=== PATIENT | male | born 1950 | race Caucasian/White ===

== ENCOUNTER 2022-05-08 11:41 | Emergency (ER) | payer OTHER ==
--- OUTSIDE RECORDS SUMMARY | 2022-05-08 11:43 | XMS REPORT | Continuity of Care Document ---
:1950 Author Organization [facility] t Address [address] [place] [address] Care Team Providers Name Role Phone Jessica Shadi Quinn Primary Care Physician KATHLEEN FUNK Attending Clinician Unavailable ALBERTO MCNEIL Attending Clinician Unavailable JAYESH ROBIN Attending Clinician Unavailable Nurse, Adc Pob Immunization Attending Clinician Unavailable Jayesh Robin DO Attending Clinician PATRICIA BELL Attending Clinician Unavailable KATHLEEN FUNK Admitting Clinician Unavailable Payers Payer Name Policy Type Policy Number Effective Date Expiration Date S nargis [facility] [id number] 2013 PPO 00:00:00 [facility] 3 [id number] 2020 00:00:00 Problems Condition Condition Condition Status Onset Resolution Last Treating Co mments Source Name Details Category Date Date Treatment Clinician Date No known No known Disease Unive rs active active ity of problems problems [facility] Allergies, Adverse Reactions, Alerts Allergy Allergy Status Severity Reaction(s) Onset Inactive Treating Comm ents Source Name Type Date Date Clinician NO KNOWN Drug Active Univers ALLERGIE Class ity of S [facility] Social History Social Habit Start Date Stop Date Quantity Comments Source History of Cigarette Smoker Universi ty of tobacco use [facility] Sex Ass[birth year] Universit y of 00:00:00 00:00:00 [facility] Smoking Status Start Date Stop Date Source Current every day smoker 2017-07-25 00:00:00 Uni versity of [facility] Medications Ordered Filled Start Stop Current Ordering Indication Dosage Frequency Signature Comments Components Source Medication Medication Date Date Medication? Clinician (SIG) Name Name METFORMIN Yes Take by Unive rs HCL 1-03 mouth. ity of (METFORMIN 14:03: [place] ORAL) [address] [place] [address] LISINOPRIL Yes Take by Univ ers ORAL 1-03 mouth. ity of 14:03: [place] [facility] ATORVASTATI Yes Take by Uni vers N CALCIUM 1-03 mouth. ity of (ATORVASTAT 14:03: [place] IN ORAL) [address] [place] [address] aspirin 81 Yes 81mg Take 81 mg U nivers mg EC 03 by mouth ity of tablet 14:03: daily. [address] INSULIN Yes inject Univers DETEMIR 1-03 under the ity of (LEVEMIR 14:03: skin. [place]) [address] [place] [address] gabapentin 2016-07 Yes TAKE 2 Unive rs 300 mg 2-22 CAPSULES 3 ity of capsule 00:00: TIMES A [facility] Immunizations Ordered Filled Immunization Date Status Comments Sourc e Immunization Name Name SARS-COV-2 COVID-19 2021-05-24 Completed Unive rsity of MODERNA BOOSTER 00:00:00 [facility] VACCINE Branch SARS-COV-2 COVID-19 2020-08-16 Completed Unive rsity of MODERNA VACCINE 00:00:00 [facility] SARS-COV-2 COVID-19 2020-07-19 Completed Unive rsity of MODERNA VACCINE 00:00:00 [facility] Procedures Procedure Date / Time Performed Performing Clinician Sourc e SARS-COV-2 COVID-19 2021-05-24 18:04:50 Doctor Unassigned, No Un [facility]ity of [place] VACCINE Name [facility] BOOSTER,0.25ML,IM (MODERNA) Encounters Start End Encounter Admission Attending Care Care Encounter Source Date/Time Date/Time Type Type Clinicians Facility Department ID 2021-05-22 Outpatient KEILY SALGUERO [id number] Isabella 14:22:41 KATLHEEN ity of [facility] 2021-08-16 2021-08-16 Outpatient ALBERTO MCNEIL [id number] [place] 00:00:00 00:00:00 Seybol d 2021-07-17 2021-07-17 Outpatient ALBERTO MCNEILCHARANJIT LOCO [id number] [place] 00:00:00 00:00:00 Seybol d 2021-05-24 2021-05-24 Outpatient Sandra CARLA [facility] [id number] Univers 13:20:00 13:20:00 JAYESH [facility] 2021-05-24 2021-05-24 Imm/Inj Nurse, Adc Pob Immunization [facility] [id number] Univers 13:03:03 13:13:03 Visit Jayesh Robin [id number] [facility] [id number] Bradley DAVISESSIO [phone] Co dical [address] 2020-08-16 2020-08-16 Outpatient Sandra BELL [facility] [id number] Univers 10:30:00 10:30:00 PATRICIA [id number] [facility] 2020-08-16 2020-08-16 Outpatient R ARABELLA [facility] [id number] Univers 10:30:00 10:30:00 PATRICIA [facility] 2020-07-19 2020-07-19 Outpatient Sandra BELL [facility] [id number] Univers 10:00:00 10:00:00 PATRICIA [id number] [facility] 2020-07-19 2020-07-19 Outpatient Sandra BELL [facility] [id number] Univers 10:00:00 10:00:00 PATRICIA [facility] Results This patient has no known results.
[2022-05-08] MEDS ORDERED: DIAZEPAM 5 MG TABLET ONE (13:00)
[2022-05-08] MEDS ORDERED: MORPHINE 4 MG/ML SYR ONE (13:00)
--- NOTE | 2022-05-08 13:02 | RAD REPORT ---
EXAM DESCRIPTION: CT - C Spine Wo Con - 05/08/2022 12:46 pm CLINICAL HISTORY: right arm pain Neck pain, radiculopathy. COMPARISON: No comparisons FINDINGS: Moderate lower cervical degenerative changes are present with posterior osteophyte and dis c thinning. This results in moderate spinal canal stenosis. No evidence of acute cervical spine fracture or subluxation. Prevertebral soft tissues are normal in thickness. Heavy atherosclerosis of both carotid bulbs. IMPRESSION: Negative for acute cervical spine abnormality. Moderately severe lower cervical degenerative spondylosis. All CT scans are performed using dose optimization technique as appropriate and may include automated exposure control or mA/KV adjustment according to patient size.
--- NOTE | 2022-05-08 14:47 | EDPHYS ---
Physician Documentation [facility] Name: Aaron Valenzuela Age: 71 yrs Sex: Male : 1950 Arrival Date: 05/08/2022 Time: 11:43 Bed DIS3 Private MD: ED Physician Uma Hawk HPI: 05/08 12:33 This 71 yrs old Male presents to ER via Ambulatory with complaints of Arm Pain, jmm Shoulder Pain, Numbness Of Hand. 12:33 The patient or guardian complains of pain, that is acute. Onset: The symptoms/episode jmm began/occurred gradually, 12 day(s) ago. Is a 71-year-old male with history diabetes mellitus, hypertension the presents emerged part with complaints of right shoulder and upper back pain which radiates into his right arm. Symptoms have been ongoing for approximately 12 days. Patient prescribed hydrocodone without any relief of pain. PCP still waiting on MRI of the shoulder for further evaluation of possible injection of the joint.. Historical: - Allergies: 12:35 No Known Allergies; vg1 - PMHx: 12:35 Diabetes - IDDM; Hypertension; vg1 - Immunization history:: Client reports receiving the 2nd dose of the Covid vaccine. - Social history:: Smoking status: Patient reports the use of cigarette tobacco products, smokes two packs cigarettes per day. ROS: 12:33 Constitutional: Negative for fever, chills, and weight loss, Cardiovascular: Negative jmm for chest pain, palpitations, and edema, Respiratory: Negative for shortness of breath, cough, wheezing, and pleuritic chest pain. 12:33 MS/extremity: Positive for pain. 12:33 All other systems are negative. Exam: 12:33 Constitutional: This is a well developed, well nourished patient who is awake, alert, jmm and in no acute distress. Head/Face: atraumatic. Eyes: EOMI, no conjunctival erythema appreciated ENT: Moist Mucus Membranes Neck: Trachea midline, Supple Chest/axilla: Normal chest wall appearance and motion. Cardiovascular: Regular rate and rhythm. No edema appreciated Respiratory: Normal respirations, no respiratory distress appreciated Abdomen/GI: Non distended Back: Normal ROM Skin: General appearance color normal 12:33 Musculoskeletal/extremity: Painful abduction, full state epidemiologist strength noted to the right arm. Full radial pulse. Right posterior shoulder tender to palpation. 12:33 Skin: Appearance: Color: normal in color. 12:33 Neuro: Orientation: is normal, Mentation: is normal, Memory: is normal. 12:33 Psych: Behavior/mood is pleasant, cooperative. Vital Signs: 12:30 BP 140 / 78; Pulse 70; Resp 18; Temp 98.3; Pulse Ox 97% ; Weight 90.72 kg; Height 6 ft. vg1 0 in. (182.88 cm); Pain 10/10; 12:30 Body Mass Index 27.12 (90.72 kg, 182.88 cm) vg1 MDM: 12:34 Patient medically screened. [facility] 14:45 Data reviewed: vital signs, nurses notes. Counseling: I had a detailed discussion with [facility] the patient and/or guardian regarding: the historical points, exam findings, and any diagnostic results supporting the discharge/admit diagnosis, radiology results, the need for outpatient follow up, to return to the emergency department if symptoms worsen or persist or if there are any questions or concerns that arise at home. 05/08 12:33 Order name: CT C Spine; Complete Time: 13:04 [facility] Administered Medications: 13:02 Drug: Valium (diazepam) 5 mg Route: PO; vg1 13:04 Drug: morphine 4 mg Route: IM; Site: left deltoid; vg1 Disposition Summary: 05/08/22 14:46 Discharge Ordered Location: Home [facility] Condition: Stable [facility] Diagnosis - Pain in right shoulder [facility] Followup: [facility] - With: Ross Us MD - When: 1 - 2 days - Reason: Recheck today's complaints, Continuance of care, Re-evaluation by your physician Discharge Instructions: - Discharge Summary Sheet [facility] - Shoulder Pain [facility] Forms: - Medication Reconciliation Form [facility] - Thank You Letter [facility] - Antibiotic Education [facility] - Prescription Opioid Use [facility] Prescriptions: - Zanaflex 4 mg Oral Tablet - take 1 tablet by ORAL route every 8 hours As needed; 20 tablet; Refills: 0, [facility] Product Selection Permitted - Diclofenac Sodium 75 mg Oral Tablet Sustained Release - take 1 tablet by ORAL route 2 times per day; 30 tablet; Refills: 0, Product [facility] Selection Permitted Addendum: 05/11/2022 03:28 STAFF ATTESTATION STATEMENT: I was immediately available onsite in the emergency s d2 department for consultation in the care of this patient. I did not see or examine this patient. Uma Hawk MD. Signatures: Dispatcher [employer] EDJonah Collins PA PA jmm Garcia, Victoria, RN RN vg1 Kenn, MD KATY Eaton sd2
--- NOTE | 2022-05-08 14:47 | ER ---
Nurse's Notes [facility] [place] Name: Aaron Valenzuela Age: 71 yrs Sex: Male : 1950 Arrival Date: 05/08/2022 Time: 11:43 Bed DIS3 Private MD: Diagnosis: Pain in right shoulder Presentation: 05/08 12:30 Chief complaint: Patient states: x 1 week Right shoulder pain that radiates down the vg1 Right arm and states numbness to Right hand; denies fall or injury. Coronavirus screen: Vaccine status: Patient reports receiving the 2nd dose of the covid vaccine. Client denies travel out of the [place] in the last 14 days. Ebola Screen: Patient negative for fever greater than or equal to 101.5 degrees Fahrenheit, and additional compatible Ebola Virus Disease symptoms Patient denies exposure to infectious person. Initial Sepsis Screen: Does the patient meet any 2 criteria? No. Patient's initial sepsis screen is negative. Does the patient have a suspected source of infection? No. Patient's initial sepsis screen is negative. Risk Assessment: Do you want to hurt yourself or someone else? Patient reports no desire to harm self or others. Onset of symptoms was May 01, 2022. 12:30 Method Of Arrival: Ambulatory vg1 12:30 Acuity: FRANCESCA 4 vg1 Triage Assessment: 12:35 General: Appears uncomfortable, Behavior is calm, cooperative. Pain: Complains of pain vg1 in Right shoulder Pain currently is 10 out of 10 on a pain scale. Pain began x 1 week. Musculoskeletal: Range of motion: limited in right shoulder Reports numbness in right hand. Historical: - Allergies: 12:35 No Known Allergies; vg1 - PMHx: 12:35 Diabetes - IDDM; Hypertension; vg1 - Immunization history:: Client reports receiving the 2nd dose of the Covid vaccine. - Social history:: Smoking status: Patient reports the use of cigarette tobacco products, smokes two packs cigarettes per day. Vital Signs: 12:30 BP 140 / 78; Pulse 70; Resp 18; Temp 98.3; Pulse Ox 97% ; Weight 90.72 kg; Height 6 ft. vg1 0 in. (182.88 cm); Pain 10/10; 12:30 Body Mass Index 27.12 (90.72 kg, 182.88 cm) vg1 ED Course: 11:43 Patient arrived in ED. rg4 12:29 Jonah Schneider PA is PHCP. moe 12:29 Uma Hawk MD is Attending Physician. jmm 12:35 Triage completed. vg1 12:35 Arm band placed on. vg1 12:47 CT C Spine In Process Unspecified. EDMS 13:58 Chelsey Brewer, RN is Primary Nurse. iw 14:46 Ross Us MD is Referral Physician. jmm Administered Medications: 13:02 Drug: Valium (diazepam) 5 mg Route: PO; vg1 13:04 Drug: morphine 4 mg Route: IM; Site: left deltoid; vg1 Outcome: 14:46 Discharge ordered by . tyrell 15:07 Patient left the ED. bd Signatures: Dispatcher [employer] EDMS Haylee Balderrama Jonah Schneider PA PA jmm Williams, Irene, RN Mariel Ramires rg4 Nayana Woo RN RN vg1
[2022-05-08 15:30] VITALS: BP 140/78; TEMP 98.3; O2SAT 97
== END 2022-05-08 15:07 | disposition home or self-care (01) ==
LOC: ER 11:41
DX: M25.511 Pain in right shoulder (principal); E11.9 Type 2 diabetes mellitus without complications; I10 Essential (primary) hypertension; F17.210 Nicotine dependence, cigarettes, uncomplicated
CPT/HCPCS: 72125; 96372; 99283

== ENCOUNTER 2022-12-06 15:54 | Observation (INO) | payer BC ==
--- OUTSIDE RECORDS SUMMARY | 2022-12-06 15:58 | XMS REPORT | Continuity of Care Document ---
:1950 Author Organization [facility] t Address [address] [facility] [place]. [address] [place] [address] Care Team Providers Name Role Phone Jessica Shadi [place] Primary Care Physician KATHLEEN FUNK Attending Clinician Unavailable ALBERTO MCNEIL Attending Clinician Unavailable JAYESH ROBIN Attending Clinician Unavailable Nurse, Adc Pob Immunization Attending Clinician Unavailable Jayesh Robin DO Attending Clinician PATRICIA BELL Attending Clinician Unavailable KATHLEEN FUNK Admitting Clinician Unavailable Payers Payer Name Policy Type Policy Number Effective Date Expiration Date S nargis [facility] [id number] 2013 PPO 00:00:00 [facility] 3 [id number] 2020 00:00:00 Problems Condition Condition Condition Status Onset Resolution Last Treating Co mments Source Name Details Category Date Date Treatment Clinician Date No known No known Disease Unive rs active active ity of problems problems [facility] Allergies, Adverse Reactions, Alerts Allergy Allergy Status Severity Reaction(s) Onset Inactive Treating Comm ents Source Name Type Date Date Clinician NO KNOWN Drug Active Univers ALLERGIE Class ity of S [facility] Social History Social Habit Start Date Stop Date Quantity Comments Source History of Cigarette Smoker Universi ty of tobacco use [facility] Sex Assigned At [birth year] Universit y of 00:00:00 00:00:00 [facility] Smoking Status Start Date Stop Date Source Current every day smoker 2017-07-25 00:00:00 Uni versity of [facility] Medications Ordered Filled Start Stop Current Ordering Indication Dosage Frequency Signature Comments Components Source Medication Medication Date Date Medication? Clinician (SIG) Name Name METFORMIN Yes Take by Unive rs HCL 1-03 mouth. ity of (METFORMIN 14:03: [place] ORAL) [address] [place] [address] LISINOPRIL Yes Take by Univ ers ORAL 1-03 mouth. ity of 14:03: [place] [facility] ATORVASTATI Yes Take by Uni vers N CALCIUM 1-03 mouth. ity of (ATORVASTAT 14:03: [place] IN ORAL) [address] [place] [address] aspirin 81 Yes 81mg Take 81 mg U nivers mg EC 03 by mouth ity of tablet 14:03: daily. [address] INSULIN Yes inject Univers DETEMIR 1-03 under the ity of (LEVEMIR 14:03: skin. [place]) [address] [place] [address] gabapentin 2016-07 Yes TAKE 2 Unive rs 300 mg 2-22 CAPSULES 3 ity of capsule 00:00: TIMES A [facility] Immunizations Ordered Filled Immunization Date Status Comments Sourc e Immunization Name Name SARS-COV-2 COVID-19 2021-05-24 Completed Unive rsity of MODERNA BOOSTER 00:00:00 [facility] VACCINE Branch SARS-COV-2 COVID-19 2020-08-16 Completed Unive rsity of MODERNA VACCINE 00:00:00 [facility] SARS-COV-2 COVID-19 2020-07-19 Completed Unive rsity of MODERNA VACCINE 00:00:00 [facility] Procedures Procedure Date / Time Performed Performing Clinician Sourc e SARS-COV-2 COVID-19 2021-05-24 18:04:50 Doctor Unassigned, No [facility] [place] VACCINE Name [facility] BOOSTER,0.25ML,IM (MODERNA) Encounters Start End Encounter Admission Attending Care Care Encounter Source Date/Time Date/Time Type Type Clinicians Facility Department ID 2021-05-22 Outpatient KEILY SALGUERO [id number] [place] 14:22:41 KATHLEEN ity of [facility] 2021-08-16 2021-08-16 Outpatient ALBERTO MCNEIL [id number] [place] 00:00:00 00:00:00 Seybol d 2021-07-17 2021-07-17 Outpatient ALBERTO MCNEILCHARANJIT LOCO [id number] [place] 00:00:00 00:00:00 Seybol d 2021-05-24 2021-05-24 Outpatient Sandra CARLA [facility] [id number] Univers 13:20:00 13:20:00 JAYESH [facility] 2021-05-24 2021-05-24 Imm/Inj Nurse, Adc Pob Immunization [facility] [id number] Univers 13:03:03 13:13:03 Visit Jayesh Robin [id number] [facility] [id number] Bradley DAVISESSIO [id number] Ut dical [address] 2020-08-16 2020-08-16 Outpatient Sandra BELL [facility] [id number] Univers 10:30:00 10:30:00 PATRICIA [id number] [facility] 2020-08-16 2020-08-16 Outpatient R ARABELLA [facility] [id number] Univers 10:30:00 10:30:00 PATRICIA [facility] 2020-07-19 2020-07-19 Outpatient Sandra BELL [facility] [id number] Univers 10:00:00 10:00:00 PATRICIA [id number] [facility] 2020-07-19 2020-07-19 Outpatient Sandra BELL [facility] [id number] Univers 10:00:00 10:00:00 PATRICIA [facility] Results This patient has no known results.
[2022-12-06 17:12] LABS: Hematocrit 44.8 % (39.6-49.0); MCV 96.2 fL (80-100); MPV 7.4 fL (7.6-11.3); RBC Red Blood Cell Count 4.65 M/uL (4.33-5.43)
[2022-12-06 17:31] LABS: Albumin 3.4 g/dL (3.4-5.0); Bilirubin Total 0.3 mg/dL (0.2-1.0); Potassium 4.3 mEq/L (3.5-5.1); Protein, Total 6.3 g/dL (6.4-8.2); Troponin High Sensitivity 9.5 pg/mL (<58.9)
--- NOTE | 2022-12-06 18:28 | RAD REPORT ---
EXAM DESCRIPTION: CT - Thorax W/ Con - 12/06/2022 5:47 pm CLINICAL HISTORY: ptx COMPARISON: Chest Single View dated 12/06/2022 TECHNIQUE: Axial thin cut images of the chest were obtained without IV contrast. Multiplanar reforma ts were generated and reviewed. All CT scans are performed using dose optimization technique as appropriate and may include automated exposure control or mA/KV adjustment according to patient size. FINDINGS: No mass or infiltrate in the lung parenchyma. No pleural thickening or pleural effusion. M oderate right pneumothorax. Subsegmental airspace opacification dependently on the right. No abnormal mediastinal or hilar masses or lymphadenopathy seen. No significant aortic or pulmonary a rtery findings. Assessment is limited in the absence of IV contrast. No chest wall mass or abnormal axillary lymphadenopathy. No pneumomediastinum. Evaluation of the solid abdominal structures reveals no suspicious findings. No acute osseus abnormal ity. Small locule of gas seen in the right anterior axillary soft tissues. IMPRESSION: Moderate right pneumothorax. No other acute findings. The findings were communicated to Nabil Page on 12/06/2022 at 18:25 hours.
--- NOTE | 2022-12-06 18:36 | EDPHYS ---
Physician Documentation [facility] Name: Aaron Valenzuela Age: 72 yrs Sex: Male : 1950 Arrival Date: 12/06/2022 Time: 15:54 Bed 2 Private MD: Rafael Varner ED Physician Yasir Chong HPI: 12/06 17:27 This 72 yrs old Male presents to ER via Ambulatory with complaints of Collasped lung. rt 17:27 Patient presents to the ED with pneumothorax seen on outpatient imaging. Patient had a rt CT scan evaluating for a stone or the bottom part of his lung revealed reportedly large right-sided pneumothorax. He has had right shoulder pain for the past 2 weeks, but denies any pain referable to his chest or shortness of breath. Denies other acute complaints at this time. Symptoms are moderate in severity, no other aggravating or alleviating factors.. Historical: - Allergies: 16:20 No Known Allergies; nj1 - PMHx: 16:20 Diabetes - IDDM; Hypertension; High cholesterol; nj1 - PSHx: 16:20 None; nj1 - Immunization history:: Client reports receiving the 2nd dose of the Covid vaccine. - Social history:: Smoking status: Patient reports the use of cigarette tobacco products, smokes two packs cigarettes per day. - Family history:: not pertinent. ROS: 17:27 Constitutional: Negative for fever, chills, and weight loss, Cardiovascular: Negative rt for chest pain, palpitations, and edema, Respiratory: Negative for shortness of breath, cough, wheezing, and pleuritic chest pain, Abdomen/GI: Negative for abdominal pain, nausea, vomiting, diarrhea, and constipation, MS/Extremity: Negative for injury and deformity, Skin: Negative for injury, rash, and discoloration, Neuro: Negative for headache, weakness, numbness, tingling, and seizure, Psych: Negative for depression, anxiety, suicide ideation, homicidal ideation, and hallucinations. Exam: 17:27 Constitutional: This is a well developed, well nourished patient who is awake, alert, rt and in no acute distress. Head/Face: Normocephalic, atraumatic. Neck: Trachea midline, no thyromegaly or masses palpated, and no cervical lymphadenopathy. Supple, full range of motion without nuchal rigidity, or vertebral point tenderness. No Meningismus. Chest/axilla: Normal chest wall appearance and motion. Nontender with no deformity. No lesions are appreciated. Cardiovascular: Regular rate and rhythm with a normal S1 and S2. No gallops, murmurs, or rubs. Normal PMI, no JVD. No pulse deficits. Abdomen/GI: Soft, non-tender, with normal bowel sounds. No distension or tympany. No guarding or rebound. No evidence of tenderness throughout. Skin: Warm, dry with normal turgor. Normal color with no rashes, no lesions, and no evidence of cellulitis. MS/ Extremity: Pulses equal, no cyanosis. Neurovascular intact. Full, normal range of motion. Neuro: Awake and alert, GCS 15, oriented to person, place, time, and situation. Cranial nerves II-XII grossly intact. Motor strength 5/5 in all extremities. Sensory grossly intact. Cerebellar exam normal. Normal gait. Psych: Awake, alert, with orientation to person, place and time. Behavior, mood, and affect are within normal limits. 17:27 ECG was reviewed by the Attending Physician. 17:27 Respiratory: Diminished breath sounds on the right lung, clear on the left, no respiratory distress. Vital Signs: 16:20 BP 143 / 60; Pulse 71; Resp 15; Temp 98(O); Pulse Ox 94% on R/A; Weight 81.65 kg; nj1 Height 6 ft. 0 in. ; Pain 8/10; 17:03 BP 114 / 62; Pulse 64; Resp 19 S; Pulse Ox 100% on Non-rebreather mask; kc6 18:36 BP 128 / 64; Pulse 66; Resp 19 S; Pulse Ox 100% on Non-rebreather mask; kc6 19:51 BP 122 / 64; Pulse 65; Resp 18; Pulse Ox 99% on R/A; aa9 21:00 BP 156 / 59; Pulse 77; Resp 18; Pulse Ox 97% on 10 lpm Non-rebreather mask; aa9 21:14 BP 156 / 59; Pulse 77; Resp 19; Pulse Ox 98% on 4 lpm NC; kd3 16:20 Body Mass Index 24.41 (81.65 kg, 182.88 cm) banner 16:20 Pain Scale: Adult nj Procedures: 18:30 Chest tube insertion: the site was prepped Chlorhexidine, Tube size: Pigtail introduced rt in right lateral to pleur-e-vac, dressed with vaseline gauze, foam tape, the patient tolerated the procedure well. MDM: 16:20 Patient medically screened. rt 18:35 Differential diagnosis: Pneumothorax, pneumonia. Data reviewed: vital signs, nurses rt notes. Consideration of Admission/Observation Patient was admitted/placed on observation. Management of patient was discussed with the following: Hospitalist: Agrees to admit. Joint Terminal Attack Controller: Recommends pigtail chest tube insertion. Care significantly affected by the following chronic conditions: Diabetes. Counseling: I had a detailed discussion with the patient and/or guardian regarding: the historical points, exam findings, and any diagnostic results supporting the discharge/admit diagnosis, lab results, radiology results, the need for further work-up and treatment in the hospital. 12/06 16:47 Order name: CBC w/o diff; Complete Time: 17:36 rt 12/06 16:47 Order name: CMP; Complete Time: 17:36 rt 12/06 16:47 Order name: Troponin High Sensitivity; Complete Time: 17:36 rt 12/06 16:47 Order name: BNP; Complete Time: 17:36 rt 12/06 16:20 Order name: Chest Single View XRAY; Complete Time: 19:32 rt 12/06 16:47 Order name: CT Chest W/ Con; Complete Time: 18:30 rt 12/06 18:30 Order name: Chest Single View XRAY rt 12/06 19:36 Order name: RAD; Complete Time: 19:47 EDMS 12/06 16:47 Order name: EKG; Complete Time: 16:48 rt 12/06 16:47 Order name: EKG - Nurse/Tech; Complete Time: 17:01 rt EC:27 Rate is 62 beats/min. Rhythm is regular, Normal Sinus Rhythm with No ectopy. QRS [place] rt is Normal. MS interval is normal. QRS interval is normal. QT interval is normal. No Q waves. T waves are Normal. No ST changes noted. Interpreted by me. Administered Medications: 18:50 Drug: fentaNYL (PF) IVP 50 mcg Route: IVP; Site: right antecubital; kc6 21:15 Follow up: Response: No adverse reaction; Pain is decreased kd3 Disposition Summary: 12/06/22 18:35 Hospitalization Ordered Hospitalization Status: Observation rt Provider: Alexx Alexandre rt Location: Telemetry/MedSurg (observation) rt Condition: Stable rt Problem: new rt Symptoms: have improved rt Bed/Room Type: Standard rt Room Assignment: 205(12/06/22 20:56) cg Diagnosis - Pneumothorax, unspecified rt Forms: - Medication Reconciliation Form rt - SBAR form rt Signatures: Dispatcher [employer] Marlen Ralph RN RN cg Laura Cross RN RN kc6 Debora Terry PA-C PAAlberto [email or web address] Yasir Chong MD MD rt Nicole Flynn RN RN nj1 Jessie Wilson RN kd3 Corrections: (The following items were deleted from the chart) 20:56 18:35 rt cg
--- NOTE | 2022-12-06 18:36 | ER ---
Nurse's Notes [facility] Name: Aaron Valenzuela Age: 72 yrs Sex: Male : 1950 Arrival Date: 12/06/2022 Time: 15:54 Bed 2 Private MD: Rafael Varner Diagnosis: Pneumothorax, unspecified Presentation: 12/06 16:20 Chief complaint: Patient states: Seen by PCP today, CT scan done outpatient, instructed nj1 to come to ED for further eval/treatment. Told he has a right collapsed lung. Pt has had upper back pain for 2 weeks, in between shoulder blades. Denies shortness of breath. 16:20 Method Of Arrival: Ambulatory [facility] 16:20 Coronavirus screen: Vaccine status: Patient reports receiving the 2nd dose of the covid nj1 vaccine. Ebola Screen: Patient denies travel to an Ebola-affected area in the 21 days before illness onset. Initial Sepsis Screen: Does the patient meet any 2 criteria? No. Patient's initial sepsis screen is negative. Does the patient have a suspected source of infection? No. Patient's initial sepsis screen is negative. Risk Assessment: Do you want to hurt yourself or someone else? Patient reports no desire to harm self or others. Onset of symptoms was November 22, 2022. 16:20 Acuity: FRANCESCA 2 nj1 Historical: - Allergies: 16:20 No Known Allergies; nj1 - PMHx: 16:20 Diabetes - IDDM; Hypertension; High cholesterol; nj1 - PSHx: 16:20 None; nj1 - Immunization history:: Client reports receiving the 2nd dose of the Covid vaccine. - Social history:: Smoking status: Patient reports the use of cigarette tobacco products, smokes two packs cigarettes per day. - Family history:: not pertinent. Screenin:[facility] ED Fall Risk Assessment (Adult) History of falling in the last 3 months, kc6 including since admission No falls in past 3 months (0 pts) Confusion or Disorientation No (0 pts) Intoxicated or Sedated No (0 pts) Impaired Gait No (0 pts) Mobility Assist Device Used No (0 pt) Altered Elimination No (0 pt) Score/Fall Risk Level 0 - 2 = Low Risk Oriented to surroundings, Maintained a safe environment, Educated pt \T\ family on fall prevention, incl call for assistance when getting out of bed, Assessed \T\ reinforced patient's understanding of fall precautions, Hourly rounding (assess needs \T\ fall precautionary measures) done. Abuse screen: Denies threats or abuse. Denies injuries from another. Nutritional screening: No deficits noted. Tuberculosis screening: No symptoms or risk factors identified. Assessment: 16:29 General: Appears in no apparent distress. comfortable, Behavior is calm, cooperative, kc6 appropriate for age. Pain: Complains of pain in right scapular area, right subscapular area and chest Pain does not radiate. Pain currently is 10 out of 10 on a pain scale. Neuro: Box Agitation-Sedation Scale (RASS): 0 - Alert and Calm Level of Consciousness is awake, alert, obeys commands, Oriented to person, place, time, situation, Appropriate for age. Cardiovascular: Heart tones S1 S2 present Capillary refill < 3 seconds Rhythm is sinus rhythm. Respiratory: Airway is patent Trachea midline Respiratory effort is even, unlabored, Respiratory pattern is regular, symmetrical, Breath sounds are diminished in right posterior upper lobe, right posterior middle lobe and right posterior lower lobe. GI: No signs and/or symptoms were reported involving the gastrointestinal system. : No signs and/or symptoms were reported regarding the genitourinary system. EENT: No signs and/or symptoms were reported regarding the EENT system. Derm: No signs and/or symptoms reported regarding the dermatologic system. Skin is intact, Skin is pink, warm \T\ dry. Musculoskeletal: No signs and/or symptoms reported regarding the musculoskeletal system. Circulation, motion, and sensation intact. Capillary refill < 3 seconds, Range of motion: intact in all extremities. 17:29 Reassessment: Patient appears in no apparent distress at this time. No changes from kc6 previously documented assessment. Patient and/or family updated on plan of care and expected duration. Pain level reassessed. Patient is alert, oriented x 3, equal unlabored respirations, skin warm/dry/pink. 18:29 Reassessment: Patient appears in no apparent distress at this time. No changes from kc6 previously documented assessment. Patient and/or family updated on plan of care and expected duration. Pain level reassessed. Patient is alert, oriented x 3, equal unlabored respirations, skin warm/dry/pink. 19:50 Reassessment: Patient appears in no apparent distress at this time. removed non re aa9 breather per Harrison Keen at bedside Patient denies pain at this time. 21:15 General: Appears in no apparent distress. comfortable, Behavior is calm, cooperative, kd3 appropriate for age. Neuro: Level of Consciousness is awake, alert, obeys commands, Oriented to person, place, time, situation. Respiratory: Airway is patent Trachea midline Respiratory effort is even, unlabored, Respiratory pattern is regular, symmetrical. Vital Signs: 16:20 BP 143 / 60; Pulse 71; Resp 15; Temp 98(O); Pulse Ox 94% on R/A; Weight 81.65 kg; nj1 Height 6 ft. 0 in. ; Pain 8/10; 17:03 BP 114 / 62; Pulse 64; Resp 19 S; Pulse Ox 100% on Non-rebreather mask; kc6 18:36 BP 128 / 64; Pulse 66; Resp 19 S; Pulse Ox 100% on Non-rebreather mask; kc6 19:51 BP 122 / 64; Pulse 65; Resp 18; Pulse Ox 99% on R/A; aa9 21:00 BP 156 / 59; Pulse 77; Resp 18; Pulse Ox 97% on 10 lpm Non-rebreather mask; aa9 21:14 BP 156 / 59; Pulse 77; Resp 19; Pulse Ox 98% on 4 lpm NC; kd3 16:20 Body Mass Index 24.41 (81.65 kg, 182.88 cm) nj1 16:20 Pain Scale: Adult [facility] ED Course: 15:57 Patient arrived in ED. mr 15:58 Yasir Chong MD is Attending Physician. rt 15:58 Rafael Varner MD is Private Physician. mr 16:19 Laura Cross, RN is Primary Nurse. kc6 16:19 Laura Cross, MELI is Primary Nurse. kc6 16:27 Inserted saline lock: 20 gauge in right forearm, using aseptic technique. Blood ll1 collected. 16:29 Arm band placed on. kc6 16:31 Patient has correct armband on for positive identification. Placed in gown. Bed in low kc6 position. Call light in reach. Side rails up X2. Adult w/ patient. 16:35 Triage completed. nj1 16:53 Chest Single View XRAY In Process Unspecified. EDMS 17:48 CT Chest W/ Con In Process Unspecified. EDMS 18:25 Assist provider with chest tube insertion with 18 Fr. in right lateral chest wall. Tray kc6 was set up. Attached to pleur-e-vac. Chest tube inserted by Yasir Chong MD Placement verified by CXR, fluctuation of fluid, return of air, Dressed with Vaseline gauze, silk tape, Patient tolerated well. 18:35 Alexx Alexandre is Hospitalizing Provider. rt 21:20 Patient admitted, IV remains in place. kd3 Administered Medications: 18:50 Drug: fentaNYL (PF) IVP 50 mcg Route: IVP; Site: right antecubital; kc6 21:15 Follow up: Response: No adverse reaction; Pain is decreased kd3 Medication: 21:11 VIS not applicable for this client. kd3 Outcome: 18:35 Decision to Hospitalize by Provider. rt 21:19 Admitted to Med/surg accompanied by tech, room 205, Report called to nilson kd3 21:19 Condition: stable 21:19 Discharge instructions given to patient, Instructed on the need for admit, Demonstrated understanding of instructions. 21:25 Patient left the ED. kd3 Signatures: Dispatcher [employer] EDID Leatha Henning mr NaseemJasmeet, RN RN ll1 Jessie Wilson RN RN kd3 Salma Mahoney, MELI RN dung9 Laura Cross RN RN kc6 Yasir Chong MD MD rt Nicole Flynn RN RN nj1
[2022-12-06] MEDS ORDERED: FENTANYL CITR 100 MCG/2 ML ONE (18:52)
--- NOTE | 2022-12-06 19:23 | P.HP ---
Certification for Inpatient Patient admitted to: Observation With expected LOS: <2 Midnights Patient will require the following post-hospital care: None Practitioner: I am a practitioner with admitting privileges, knowledge of patient current condition, hospital course, and medical plan of care. Services: Services provided to patient in accordance with Admission requirements found in Title 42 Section 412.3 of the Code of Federal Regulations Patient History Date of Service: 12/06/22 Primary Care Provider: [place] Reason for admission: Pneumothorax History of Present Illness: Mr. Valenzuela is a 72 year old male with past medical history of hypertension, hyperlipidemia, and insulin dependent type 2 diabetes who presented to the ED with findings of a pneumothorax on outpatient imaging. He states that he has had pain in between his shoulder blades on and off for about 2 weeks now, but no chest pain or shortness of breath. It is suspected that the pneumothorax was caused by a back injection he previously received, but unclear. Chest CT obtained today showed "Moderate right pneumothorax. No other acute findings." General surgery, Dr. Schneider, was contacted and recomended pigtail catheter chest tube, which was successfully placed. Repeat chest xray showed "No residual pneumothorax appreciated." Vital signs have been stable. O2 satisfactory on room air. No lab abnormalities. Patient will be admitted for further management. Allergies No Known Allergies Allergy (Verified 11/11/15 16:46) Home medications list reviewed: Yes Home Medications: Aspirin [Aspirin EC] 81 mg PO DAILY 11/11/15 Insulin Detemir [Levemir] 90 units SQ DAILY 11/11/15 Metformin HCl [Metformin HCl ER] 1,000 mg PO DAILY 11/11/15 Pravastatin [Pravachol] 10 mg PO BEDTIME 11/11/15 lisinopriL [Prinivil] 10 mg PO DAILY 11/11/15 - Past Medical/Surgical History Diabetic: Yes -: Type 2 Diabetes- Insulin Dependent -: Hypertension -: Hyperlipidemia Past Surgical History: Patient denies surgical history Psychosocial/ Personal History: Patient lives at home with his family. - Family History Family History: Reviewed- Non-Contributory - Social History Smoking Status: Current every day smoker Alcohol use: Yes CD- Drugs: No Caffeine use: Yes Place of Residence: Home Review of Systems 10-point ROS is otherwise unremarkable Respiratory: Unremarkable Musculoskeletal: Shoulder Pain Physical Examination - Vital Signs Temperature: 98 F Blood Pressure: 128/64 Pulse: 66 Respirations: 19 Pulse Ox (%): 100 - Physical Exam General: Alert, In no apparent distress HEENT: Atraumatic, EOMI, Sclerae nonicteric Neck: Supple, 2+ carotid pulse no bruit Respiratory: Clear to auscultation bilaterally, Normal air movement Cardiovascular: Regular rate/rhythm, Normal S1 S2 Gastrointestinal: Normal bowel sounds, No tenderness Musculoskeletal: No tenderness Integumentary: No rashes Neurological: Normal speech, Normal affect - Studies Laboratory Data (last 24 hrs) 12/06/22 16:50: Sodium 130 L, Potassium 4.3, BUN 25 H, Creatinine 0.80, Glucose 165 H, Total Bilirubin 0.3, AST 17, ALT 33, Alkaline Phosphatase 77 12/06/22 16:50: WBC 9.80, Hgb 15.1, Hct 44.8, Plt Count 208 Assessment and Plan - Problems (Diagnosis) (1) Pneumothorax on right Current Visit: Yes Status: Acute (2) Hypertension Current Visit: Yes Status: Chronic Qualifiers: Hypertension type: primary hypertension Qualified Code(s): I10 - Essential (primary) hypertension (3) Hyperlipidemia Current Visit: Yes Status: Chronic Qualifiers: Hyperlipidemia type: mixed hyperlipidemia Qualified Code(s): E78.2 - Mixed hyperlipidemia (4) Type 2 diabetes mellitus Current Visit: Yes Status: Chronic Qualifiers: Diabetes mellitus fdc insulin use: with fdc use Diabetes mellitus complication status: with hyperglycemia Qualified Code(s): E11.65 - Type 2 diabetes mellitus with hyperglycemia; Z79.4 - watermelon inspector (current) use of insulin (5) Tobacco abuse Current Visit: Yes Status: Chronic - Plan Patient is admitted for further management of right pneumothorax s/p pigtail catheter. Suspected that pneumothorax was caused by a back injection he previously received, but unclear. General surgery, Dr. Schneider and pulmonology consulted- both aware of patient. Monitor oxygen closely, currently satisfactory on room air. No dyspnea. Pain control as needed. ACHS accu checks with mild sliding scale and diabetic diet. Check lipid panel and A1c. He spokes 2 ppd. Cessation advised. Nicoderm patch provided. Monitor and replete electrolytes per protocol. Reconcile and continue home medications. Discharge Plan: Home Plan to discharge in: 24 Hours - Advance Directives Does patient have a Living Will: No Does patient have a Durable POA for Healthcare: No - Code Status/Comfort Care Code Status Assessed: Yes Code Status: Full Code Physician Review: Patient Assessed, Agree with Above Assessment and Plan Critical Care: No Time Spent Managing Pts Care (In Minutes): 50
--- NOTE | 2022-12-06 19:29 | RAD REPORT ---
EXAM DESCRIPTION: Robyn Single View12/06/2022 4:51 pm CLINICAL HISTORY: ptx COMPARISON: Chest Single View dated 09/02/2016; Abdomen 1 View (KUB) dated 11/16/2015 TECHNIQUE: Portable AP view of the chest. FINDINGS: The lungs are clear. Moderate right pneumothorax with 4.5 centimeter of pleural separation . No sizable effusion. Medial right basal atelectasis. The cardiomediastinal contours are unremarkabl e. IMPRESSION: Moderate right pneumothorax as above.
--- NOTE | 2022-12-06 19:35 | RAD REPORT ---
EXAM DESCRIPTION: Robyn Single View12/06/2022 7:23 pm CLINICAL HISTORY: chest tube COMPARISON: <Comparisons> TECHNIQUE: Portable AP view of the chest. FINDINGS: Interval placement of a small bore right pleural drainage catheter. The lungs are clear. N o residual pneumothorax or effusion. The cardiomediastinal contours are unremarkable. IMPRESSION: No residual pneumothorax appreciated.
[2022-12-06] MEDS ORDERED: NA CHLORIDE 0.9% 1,000 ML IV SCH (21:20)
[2022-12-06] MEDS ORDERED: ALBUTEROL 2.5 MG/3 ML NEB SOL NEB PRN (21:20)
[2022-12-06] MEDS: INSULIN -REGULAR HUMAN 50 UNIT/0.5 ML ML SQ SCH (21:20)
[2022-12-06] MEDS ORDERED: ONDANSETRON 4 MG/2 ML VIAL IV PRN (21:20)
[2022-12-06] MEDS ORDERED: ACETAMINOPHEN 500 MG TAB PO PRN (21:20)
[2022-12-06 21:56] VITALS: BMI 24.4
[2022-12-06] MEDS: HYDROCODONE/APAP 7.5/325 MG TAB PO PRN (21:56)
[2022-12-06] MEDS: MORPHINE 4 MG/ML SYR IV PRN (23:24)
[2022-12-06] MEDS: NICOTINE 21 MG/PAT TD SCH (23:30)
[2022-12-07 03:01] LABS: Absolute Lymphocytes (CBC) 1.9 K/uL (0.7-4.9); Hematocrit 43.3 % (39.6-49.0); Lymphocytes % 16.6 % (15.3-44.8); MCV 96.3 fL (80-100); MPV 7.1 fL (7.6-11.3)
[2022-12-07] MEDS: HYDROCODONE/APAP 7.5/325 MG TAB PO PRN (03:07)
[2022-12-07 03:28] LABS: Magnesium 1.8 mg/dL (1.6-2.4); Phosphorus 3.5 mg/dL (2.5-4.9); Potassium 4.4 mEq/L (3.5-5.1); Thyroid Stimulating Hormone 1.43 uIU/mL (0.358-3.740)
--- NOTE | 2022-12-07 05:37 | EKG ---
Test Date: 2022-12-06 Test Time: 16:58:49 [employer]: CHARITO MEASUREMENT RESULTS: Intervals: Rate: 62 MS: 190 QRSD: 94 QT: 360 QTc: 365 [place]: P: 63 MS: 190 QRS: 84 T: 40 INTERPRETIVE STATEMENTS: Normal sinus rhythm Normal ECG Compared to ECG 09/02/2016 12:57:15 No significant changes Electronically Signed On 12-07-22 05:36:33 CDT by Vaughn Parada
[2022-12-07] MEDS: MORPHINE 4 MG/ML SYR IV PRN (06:42)
--- NOTE | 2022-12-07 07:24 | RAD REPORT ---
[facility] 4[facility]44 am CLINICAL HISTORY: Right pneumothorax COMPARISON: December 06, 2022 FINDINGS: Right chest tube in place. Equivocal minimal right apical pneumothorax. The lungs appear clear of acute infiltrate. Heart is normal size
[2022-12-07] MEDS ORDERED: MAGNESIUM SULFATE 1 gm IVPB 1 GM/100 ML BAG IV ONE (09:00)
[2022-12-07] MEDS: INSULIN -REGULAR HUMAN 50 UNIT/0.5 ML ML SQ SCH ×2 (09:27→12:19)
[2022-12-07] MEDS: NICOTINE 21 MG/PAT TD SCH (09:30)
--- NOTE | 2022-12-07 11:06 | RAD REPORT ---
[facility] 10[facility]54 am CLINICAL HISTORY: Pneumothorax COMPARISON: December 07, 2022 FINDINGS: Curvilinear density right apex unchanged equivocal for a minimal pneumothorax Right chest tube in place The lungs appear clear. Heart is normal size IMPRESSION: No acute abnormalities displayed
--- NOTE | 2022-12-07 11:50 | P.CNS ---
Date of Consult: 12/07/22 Primary Care Provider: [place] Chief Complaint: Pneumothorax History of Present Illness: Patient is 72 years of age for chronic neck pain was admitted from the emergency room as an incidental right-sided pneumothorax was discovered apparently he had some hematuria recently there if there for this reason why the CT of the abdomen was ordered and is a very heavy smoker 2 to 3 packs of cigarettes a day apparently he got worse about 2 weeks ago discomfort in his chest and neck In the emergency room small chest tube was inserted eyes any shortness of breath Allergies No Known Allergies Allergy (Verified 11/11/15 16:46) Home Medications: Metformin HCl [Metformin HCl ER] 500 mg PO BID 11/11/15 lisinopriL [Prinivil] 10 mg PO DAILY 11/11/15 Atorvastatin Calcium 20 mg PO DAILY 12/06/22 Dulaglutide [Trulicity] 3 mg SQ Q7D 12/06/22 Empagliflozin [Jardiance] 10 mg PO DAILY 12/06/22 - Past Medical/Surgical History Diabetic: Yes -: Type 2 Diabetes- Insulin Dependent -: Hypertension -: Hyperlipidemia Psychosocial/ Personal History: Patient lives at home with his family. - Family History grandmother Medical History: Diabetes grandfather Medical History: Diabetes - Social History Smoking Status: Current every day smoker Alcohol use: Yes CD- Drugs: No Caffeine use: Yes Place of Residence: Home Review of Systems 10-point ROS is otherwise unremarkable Physical Examination Temp Pulse Resp BP Pulse Ox 97.8 F 68 20 130/61 98 12/07/22 08:00 12/07/22 08:00 12/07/22 08:00 12/07/22 08:00 12/07/22 08:00 General: Alert, Oriented x3 HEENT: Atraumatic Neck: Supple Respiratory: Clear to auscultation bilaterally, Diminished Cardiovascular: No edema, Regular rate/rhythm, Normal S1 S2 Gastrointestinal: Normal bowel sounds, Soft and benign Laboratory Data (last 24 hrs) 12/06/22 16:50: Sodium 130 L, Potassium 4.3, BUN 25 H, Creatinine 0.80, Glucose 165 H, Total Bilirubin 0.3, AST 17, ALT 33, Alkaline Phosphatase 77 12/06/22 16:50: WBC 9.80, Hgb 15.1, Hct 44.8, Plt Count 208 - Problems (1) Pneumothorax on right Current Visit: Yes Status: Acute Plan: Patient is 72 years of age admitted with right-sided incidental pneumothorax discovered on a CT scan of the abdomen she was undergoing for hematuria very heavy smoker no prior history of pneumothorax had chronic neck and back pain had some injections in the neck patient suction was DC'd agree with removing the chest tube if he develops recurrent pneumothorax will consider for her to CT surgery for a VATS procedure no obvious blebs visible been counseled not to smoke eyes any pulmonary complaints. To follow-up as an outpatient vital signs are stable counseled not to smoke
[2022-12-07 13:21] VITALS: BP 124/59; TEMP 98.4
[2022-12-07] MEDS ORDERED: ALBUTEROL 2.5 MG/3 ML NEB SOL NEB PRN (14:00)
--- NOTE | 2022-12-07 14:24 | RAD REPORT ---
EXAM DESCRIPTION: RADChest Single View12/07/2022 2:14 pm CLINICAL HISTORY: follow up after chest tube removal COMPARISON: Chest Single View dated 12/07/2022; Chest Single View dated 12/07/2022; Chest Single View dated 12/06/2022; Chest Single View dated 12/06/2022 TECHNIQUE: Portable AP view of the chest. FINDINGS: Small bore right chest tube has been removed. The lungs are clear. No pneumothorax or effu berry. The cardiomediastinal contours are unremarkable. IMPRESSION: No pneumothorax or other acute abnormalities.
[2022-12-07 14:35] VITALS: O2SAT 98
--- NOTE | 2022-12-07 15:13 | P.DS ---
Admission Date: 12/06/22 Discharge Date: 12/07/22 Primary Care Provider: [place] Disposition: ROUTINE DISCHARGE Discharge Condition: FAIR Reason for Admission: Pneumothorax - Problems (1) Pneumothorax on right Current Visit: Yes Status: Acute (2) Hyperlipidemia Current Visit: Yes Status: Chronic Qualifiers: Hyperlipidemia type: mixed hyperlipidemia Qualified Code(s): E78.2 - Mixed hyperlipidemia (3) Hypertension Current Visit: Yes Status: Chronic Qualifiers: Hypertension type: primary hypertension Qualified Code(s): I10 - Essential (primary) hypertension (4) Tobacco abuse Current Visit: Yes Status: Chronic (5) Type 2 diabetes mellitus Current Visit: Yes Status: Chronic Qualifiers: Diabetes mellitus half-way insulin use: with intermediate manager use Diabetes mellitus complication status: with hyperglycemia Qualified Code(s): E11.65 - Type 2 diabetes mellitus with hyperglycemia; 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 Valenzuela is a 72 year old male with past medical history of hypertension, hyperlipidemia, and insulin dependent type 2 diabetes who presented to the ED with findings of a pneumothorax on outpatient imaging. He stated that he has had pain in between his shoulder blades on and off for about 2 weeks, but no chest pain or shortness of breath. Chest CT obtained today showed "Moderate right pneumothorax. No other acute findings." General surgery, Dr. Schneider, was contacted and recomended pigtail catheter chest tube, which was successfully placed. Repeat chest xray showed "No residual pneumothorax appreciated." Vital signs have been stable. O2 satisfactory on room air. No lab abnormalities. Patient hospitalized for further management. Hospital Course: Patient was monitored overnight without any incident. He denied any shortness of breath or chest pain, and was generally asymptomatic. He was seen in consultation by general surgery and pulmonary. Pigtail catheter was clamped and later removed. Repeat checks x-ray after the pigtail catheter removal shows no pneumothorax. Patient with stable vitals. He is deemed stable for discharge per pulmonary. Patient is aware he needs to follow-up with pulmonary Dr. Ku within 2 weeks and no strenuous activity until follow-up. Vital Signs/Physical Exam: Temp Pulse Resp BP Pulse Ox 98.4 F 72 18 124/59 L 97 12/07/22 12:00 12/07/22 12:00 12/07/22 12:00 12/07/22 12:00 12/07/22 12:00 General: Alert, In no apparent distress, Oriented x3 HEENT: Mucous membr. moist/pink Neck: Supple, JVD not distended Respiratory: Clear to auscultation bilaterally, Normal air movement Cardiovascular: No edema, Regular rate/rhythm, Normal S1 S2 Gastrointestinal: Normal bowel sounds, Soft and benign, Non-distended, No tenderness Musculoskeletal: No swelling Integumentary: No rashes, No cyanosis Neurological: Normal strength at 5/5 x4 extr Laboratory Data at Discharge: WBC 11.70 thou/uL (4.3-10.9) H 12/07/22 02:39 Hgb 14.6 g/dL (13.6-17.9) 12/07/22 02:39 Hct 43.3 % (39.6-49.0) 12/07/22 02:39 Plt Count 192 thou/uL (152-406) 12/07/22 02:39 Sodium 134 mEq/L (136-145) L D 12/07/22 02:39 Potassium 4.4 mEq/L (3.5-5.1) 12/07/22 02:39 BUN 19 mg/dL (7-18) H 12/07/22 02:39 Creatinine 0.75 mg/dL (0.70-1.30) 12/07/22 02:39 Glucose 165 mg/dL (74-106) H 12/07/22 02:39 Phosphorus 3.5 mg/dL (2.5-4.9) 12/07/22 02:39 Magnesium 1.8 mg/dL (1.6-2.4) 12/07/22 02:39 Total Bilirubin 0.3 mg/dL (0.2-1.0) 12/06/22 16:50 AST 17 U/L (15-37) 12/06/22 16:50 ALT 33 U/L (16-61) 12/06/22 16:50 Alkaline Phosphatase 77 U/L (45-117) 12/06/22 16:50 Triglycerides 139 mg/dL (<150) 12/07/22 02:39 Cholesterol 134 mg/dL (<200) 12/07/22 02:39 HDL Cholesterol 51 mg/dL (40-60) 12/07/22 02:39 Cholesterol/HDL Ratio 2.63 12/07/22 02:39 Home Medications: Metformin HCl [Metformin ER Osmotic] 500 mg PO BID 11/11/15 lisinopriL [Prinivil*] 10 mg PO DAILY 11/11/15 Atorvastatin Calcium 20 mg PO DAILY 12/06/22 Dulaglutide [Trulicity] 3 mg SQ Q7D 12/06/22 Empagliflozin [Jardiance] 10 mg PO DAILY 12/06/22 Physician Discharge Instructions: Avoid any strenuous activity lifting weights etc. for the next 2 weeks Diet: AHA Activity: Ad eliud Followup: Prince Peter MD [ACTIVE - CAN ADMIT] - (Within 2 to 4 weeks) Rafael Varner MD [Primary Care Provider] - Time spent managing pt's care (in minutes): 34
[2022-12-07] MEDS ORDERED: NICOTINE 21 MG/PAT TD SCH (19:19)
--- NOTE | 2022-12-07 20:46 | CON ---
Date of Consultation: 12/07/2022 Brief History Of Present Illness: The patient is a 72-year-old male, who has a past medical history of hypertension, hyperlipidemia, insulin-dependent diabetes, who presented to the ER with findings of pneumothorax on outpatient imaging. As such, he came to the ER as he developed some pain between hi s shoulder blades, which was intermittent for approximately 2 weeks prior. He denied any chest pain or shortness of breath. He had been getting some back injections in the recent past and there was so me consideration that this perhaps was the etiology of his pneumothorax; however, it was unclear at t hat time. He ultimately had a pigtail catheter placed for a right-sided pneumothorax with significan t improvement in aeration and resolution of the pneumothorax with suction by the ER physician, Dr. Clinton alfaro. I saw the patient on the floor. He feels well and he has no oxygen currently on. No shor tness of breath. No chest pain. No new issues or complaints. Past Medical History: Diabetes, hypertension, hyperlipidemia. Past Surgical History: He denies any surgical history. Home Medications: Include aspirin, insulin, metformin, pravastatin, lisinopril. Allergies: NO KNOWN DRUG ALLERGIES. Social History: Smoking; he smokes cigarettes every day. He drinks alcohol every day. Review of Systems: Ten-point review of systems other than HPI, he has shoulder pain. Physical Examination: Vital Signs: At the time of my examination; his blood pressure was 124/59, pulse was 72, respiratory rate 18, temperature 98.4, SpO2 97% on room air. General: He is awake, alert, oriented. Psychiatric: Appropriate, conversive. HEENT: He is normocephalic. Sclerae anicteric. Mucous membranes moist. Oropharynx clear. Neck: Supple without JVD. Chest: Expansion and excursion. Cardiovascular: Regular rate and rhythm. Pulmonary: Clear to auscultation bilaterally. There is a right-sided pigtail catheter in place with no air leak evident on pneumevac system. The pigtail catheter sutured in and in appropriate positio n and functional at this time. Minimal output in the chest tube canister as well. Skin: Warm and dry. Laboratory Data: Revealed a white blood cell count of 11.7, hemoglobin 14.6, hematocrit of 43.3, timmy telet count was 192. His sodium 134, potassium 4.4, chloride 108, carbon dioxide 32, BUN 19, creatin ine 0.75, glucose is 165. Hemoglobin A1c is 7.4. He had imaging performed, which included a CT of t he chest on 12/06, officially read as moderate right pneumothorax, no acute findings. He had a subse quent postprocedural chest x-ray performed on 12/06 after placement of pigtail catheter, which was of ficially read as no residual pneumothorax appreciated. I personally reviewed these images myself and concur with the radiologic findings. Assessment And Plan: This is a 72-year-old male, who comes in with a spontaneous pneumothorax or per haps after procedure. It is unclear the exact etiology at this time. Chest tube management, the pat ient is currently on suction. We will transition to water-seal and then eventually pull the tube and hopefully later part today with serial chest x-rays, oxygen supplementation. I have explained that if the patient is to experience any residual affects such as shortness of breath or recurrence of his pneumothorax, he may have to have another chest tube placed. I have explained the risks, benefits, and alternatives of the above-stated plan, the patient agrees to proceed as indicated. Thank you for this interesting consult. LURDES/GARY Voice ID: [id number] Report ID: [id number]
== END 2022-12-07 15:32 | disposition home or self-care (01) ==
LOC: ER 15:54 → ERHOLD 19:17 → 2ND 20:58
PROVIDERS: ADMIT Internal Medicine; ATTEND Internal Medicine
DX: J93.9 Pneumothorax, unspecified (principal); I10 Essential (primary) hypertension; E78.5 Hyperlipidemia, unspecified; E11.8 Type 2 diabetes mellitus with unspecified complications; Z79.4 Long term (current) use of insulin; F17.210 Nicotine dependence, cigarettes, uncomplicated; Z71.6 Tobacco abuse counseling
CPT/HCPCS: 93005; 85025; 80048; 36415; 83735; 84100; 80061; 82947 ×2; 84443; 83036; 85027; 84484; 80053; 83880; 71260; 71045 ×5; 94760 ×2; 96374; 99285; Q9967; J1815 ×2; J3475; J3010; J7030; G0378

== ENCOUNTER 2025-04-17 17:42 | Emergency (ER) | payer BC ==
--- OUTSIDE RECORDS SUMMARY | 2025-04-17 17:46 | XMS REPORT | Continuity of Care Document ---
Author Name Unknown Address [address] [place] [address] [facility] Address [address] [place] [address] Care Team Providers Care Donations Attendant Name Role Phone Shadi Lopez Primary Care Physician [phone] Kathleen Varner Attending Clinician Unavailable KATHLEEN FUNK Attending Clinician Kedar Calvo Attending Clinician Yaima [facility] Attending Clinician Unavailable Doctor Unassigned, [place] Attending Clinician U ALBERTO Chaidez Attending Clinician Unavailable JAYESH AGUIRRE Attending Clinician Unavail able Nurse, Adc Pob Immunization Attending Clinician Unavailable Jayesh Aguirre DO Attending Clinician PATRICIA BELL Attending Clinician Unavailable KATHLEEN FUNK Admitting Clinician Kedar Calvo Admitting Clinician Unav ailable KNOW, DOES_NOT Admitting Clinician Unavailable Payers Payer Name Policy Type Policy Number Effective Date Expirati on Date Source [facility] [id number] 2013 00:00:00 [facility] 3 [id number] 2020 00:00:00 Problems Condition Name Condition Details Condition Category Status Onset Date Resolution Date Last Treatment Date Treating Clinician Comments Source No known active problems No known active problems Disease [facility] [id number] Cervical spondylosi s Problem [facility] Chronic pain syndrome Chronic pain syndrome Problem [facility] Cervical radiculopa thy Cervical radiculopa thy Problem [facility] Lumbar spondylosi s Lumbar spondylosi s Problem [facility] Allergies, Adverse Reactions, Alerts Allergy Name Allergy Type Status Severity Reaction(s) Onset Date Inactive Date Treating Clinician Comments Source No Known Allergie s DA Active U 2023-07 00:00: 00 [facility] No Known Allergie s DA Active 2023-07 00:00: 00 [facility] NO KNOWN ALLERGIE S Drug Class Active [facility] Social History Social Habit Start Date Stop Date Quantity Comments Source History of Tobacco Use Current Smoker [facility] Sex Assigned At [facility] Smoking Status Start Date Stop Date Source Current Smoker 2024-05-22 00:00:00 [facility] Medications Ordered Medication Name Filled Medication Name Start Date Stop Date Current Medication? Ordering Clinician Indication Dosage Frequency Signature (SIG) Comments Components Source METFORMIN HCL (METFORMIN ORAL) 07-25 14:03: 07 Yes Take by mouth. [facility] aspirin 81 mg EC tablet 07-25 14:03: 07 Yes 81mg Take 81 mg by mouth daily. [facility] INSULIN DETEMIR (LEVEMIR SC) 07-25 14:03: 07 Yes inject under the skin. [facility] gabapentin 300 mg capsule 2016-07 00:00: 00 Yes TAKE 2 CAPSULES 3 TIMES A DAY [facility] Atorvastati n Calcium 20 MG Atorvastati n Calcium 20 MG No Atorvastat in Calcium 20 MG Fenofibrate 160 MG Fenofibrate 160 MG No Fenofibrat e 160 MG Colchicine 0.6 MG Colchicine 0.6 MG No Colchicine 0.6 MG Jardiance 25 MG Jardiance 25 MG No Jardiance 25 MG Semglee (yfgn) 100 UNIT/ML Semglee (yfgn) 100 UNIT/ML No Semglee (yfgn) 100 UNIT/ML Potassium Chloride ER 20 MEQ Potassium Chloride ER 20 MEQ No Potassium Chloride ER 20 MEQ Lisinopril- hydroCHLORO thiazide 20-12.5 MG Lisinopril- hydroCHLORO thiazide 20-12.5 MG No Lisinopril -hydroCHLO ROthiazide 20-12.5 MG Methocarbam ol 500 MG Methocarbam ol 500 MG No Methocarba mol 500 MG Tamsulosin HCl 0.4 MG Tamsulosin HCl 0.4 MG No Tamsulosin HCl 0.4 MG Topiramate 50 MG Topiramate 50 MG No Topiramate 50 MG Pregabalin 200 MG Pregabalin 200 MG No Pregabalin 200 MG Anoro Ellipta 62.5-25 MCG/ACT Anoro Ellipta 62.5-25 MCG/ACT No Anoro Ellipta 62.5-25 MCG/ACT Trulicity 1.5 MG/0.5ML Trulicity 1.5 MG/0.5ML No Trulicity 1.5 MG/0.5ML Vital Signs Vital Name Observation Time Observation Value Comments S ource height 2024-05-22 09:30:00 72 [in_i] [facility] weight-kg 2024-05-22 09:30:00 90.72 kg [facility] bmi 2024-05-22 09:30:00 27.12 kg/m2 [facility] heart rate 2024-05-22 09:30:00 77 /min [facility] blood pressure systolic 2024-05-22 09:30:00 126 mm[Hg] [facility] blood pressure diastolic 2024-05-22 09:30:00 80 mm[Hg] [facility] height 2024-05-07 09:15:00 72 [in_i] [facility] weight-kg 2024-05-07 09:15:00 90.72 kg [facility] bmi 2024-05-07 09:15:00 27.12 kg/m2 [facility] heart rate 2024-05-07 09:15:00 75 /min [facility] blood pressure systolic 2024-05-07 09:15:00 130 mm[Hg] [facility] diastolic 2024-05-07 09:15:00 78 mm[Hg] [facility] height 2024-03-05 15:15:00 72 [in_i] [facility] 2024-03-05 15:15:00 90.72 kg [facility] bmi 2024-03-05 15:15:00 27.12 kg/m2 [facility] heart rate 2024-03-05 15:15:00 74 /min [facility] blood [facility] systolic 2024-03-05 15:15:00 124 mm[Hg] [facility] diastolic 2024-03-05 15:15:00 73 mm[Hg] [facility] Procedures Procedure Date / Time Performed Performing Clinicia n Source BYPASS L FEM ART TO R FEMOR A WITH SYNTH SUB, OPEN 2024-07-14 00:00:00 [id number] [facility] REFERRAL- REQUEST/RESPONSE 2022-12-22 05:01:00 Doctor Unassigned, [place] [facility] SARS-COV-2 COVID-19 VACCINE BOOSTER,0.25ML,IM (MODERNA) 2021-05-24 18:04:50 Doctor Unassigned, [place] [facility] Encounters Start Date/Time End Date/Time Encounter Type Admission Type Attending Clinicians Care Facility Care Department Encounter ID Source 2024-03-10 11:46:01 Outpatient Kathleen Varner [facility] [id number] [facility] 2024-02-15 10:11:01 Outpatient Kathleen Varner [facility] [id number] [facility] 2021-05-22 14:22:41 Outpatient KATHLEEN SALGUERO [facility] [id number] [facility] 2024-07-31 00:00:00 2024-07-31 00:00:00 ambulatory [facility] [id number] 2024-07-14 14:41:00 2024-07-15 14:11:00 Inpatient Kedar Dietz [facility] CARDIAC [id number] [facility] 2024-07-04 00:00:00 2024-07-04 00:00:00 (Pain Mgmt) Pain Mgmt Procedures CLS CLS [id number] [facility] 2024-06-26 00:00:00 2024-06-26 00:00:00 (TEL) CLS CLS [id number] [facility] 2024-06-07 06:51:00 2024-06-07 06:51:00 Outpatient Yaima Millard [facility] [id number] [facility] 2024-05-23 00:00:00 2024-05-23 00:00:00 (Pain Mgmt) Pain Mgmt Procedures CLS CLS [id number] [facility] 2024-05-22 00:00:00 2024-05-22 00:00:00 (TEL) CLS CLS [id number] [facility] 2024-05-22 00:00:00 2024-05-22 00:00:00 Office Visit- Est Pt.- Level 4 [facility] [id number] [facility] 2024-05-09 00:00:00 2024-05-09 00:00:00 (Pain Mgmt) Pain Mgmt Procedures CLS CLS [id number] [facility] 2024-05-07 00:00:00 2024-05-07 00:00:00 (TEL) CLS CLS [id number] [facility] 2024-05-07 00:00:00 2024-05-07 00:00:00 Office Visit- Est Pt.- Level 4 [facility] CLS [id number] [facility] 2024-04-11 00:00:00 2024-04-11 00:00:00 (Pain Mgmt) Pain Mgmt Procedures CLS CLS [id number] [facility] 2024-03-10 00:00:00 2024-03-10 00:00:00 (TEL) CLS CLS [id number] [facility] 2024-03-05 00:00:00 2024-03-05 00:00:00 Office Visit- Est Pt.- Level 4 [facility] CLS [id number] [facility] 2024-02-15 00:00:00 2024-02-15 00:00:00 (Pain Mgmt) Pain Mgmt Procedures [facility] [id number] [facility] 2022-12-22 00:00:00 2022-12-22 00:00:00 Orders Only Doctor Unassigned, [place] [facility] [id number] [facility] 2021-08-16 00:00:00 2021-08-16 00:00:00 Outpatient ALBERTO MCNEIL [facility] [id number] [facility] 2021-07-17 00:00:00 2021-07-17 00:00:00 Outpatient ALBERTO MCNEIL MERARI [id number] [facility] 2021-05-24 13:20:00 2021-05-24 13:20:00 Outpatient JAYESH TRAYLOR [facility] [id number] [facility] 2021-05-24 13:03:03 2021-05-24 13:13:03 Imm/Inj Visit Nurse, Adc Pob Immunizatio [facility] [id number] [facility] 2020-08-16 10:30:00 2020-08-16 10:30:00 Outpatient PATRICIA HEART [facility] [id number] [facility] 2020-08-16 10:30:00 2020-08-16 10:30:00 Outpatient PATRICIA HEART [facility] [id number] [facility] 2020-07-19 10:00:00 2020-07-19 10:00:00 Outpatient PATRICIA HEART [facility] [id number] [facility] 2020-07-19 10:00:00 2020-07-19 10:00:00 Outpatient PATRICIA HEART [facility] [id number] [facility] Results Test Description Test Time Test Comments Results Result Co mments Source BASIC METABOLIC [id number] 09:48:00* Test Item Value Reference Range Interpretation Comme nts SODIUM (test code = NA) 133 mmol/L 136-145 L POTASSIUM (test code = K) 5.0 mmol/L 3.5-5.1 N CHLORIDE (test code = CL) 97 mmol/l 98-107 L CARBON DIOXIDE (test code = CO2) 29 mmol/L 20-31 N GLUCOSE (test code = GLU) 221 mg/dL 74-106 H BLOOD UREA NITROGEN (test code = BUN) 20 mg/dL 9-23 N GLOMERULAR FILTRATION RATE (test code = GFR) >=60 max estimate mL/min >60 The Glomerular Filtration Rate is a calculated parameterbased on serum Creatinine, patient age and sex. GFR valuesless than 60 mL/min/1.73 square meters are indicative ofChronic Kidney Disease. Values less than 15 mL/min/1.73square meters indicate Kidney failure. The calculation forGFR is based on the CKD-EPI (2020) calculation. This formulais race indifferent and is the recommended formula for GFRby the National Kidney Foundation for Adults.The GFR will not calculate if the sex is unknown or if thepatient's age is <18 years. CREATININE (test code = CREAT) 1.20 mg/dL 0.70-1.30 N CALCIUM (test code = CA) 9.5 mg/dL 8.7-10.4 N CBC W/AUTO [id number] 09:20:00* Test Item Value Reference Range Interpretation Comme nts WHITE BLOOD CELL (test code = WBC) 10.2 x10 3/uL 4.8-10.8 N RED BLOOD CELL (test code = RBC) 4.94 x10 6/uL 4.70-6.10 N HEMOGLOBIN (test code = HGB) 16.0 g/dL 14.0-18.0 N HEMATOCRIT (test code = HCT) 48.9 % 42.0-52.0 N MEAN CELL VOLUME (test code = MCV) 99.0 fL 80.0-94.0 H MEAN CELL HGB (test code = MCH) 32.4 pg 27-31 H MEAN CELL HGB CONCENTRATION (test code = MCHC) 32.7 G/DL 33-36.5 L RED CELL DISTRIBUTION WIDTH (test code = RDW) 12.5 % 12.9-16.9 L PLATELET COUNT (test code = PLT) 170 x10 3/uL 150-440 N MEAN PLATELET VOLUME (test c ode = MPV) 9.1 fL 8.9-12.4 N NEUTROPHIL % (test code = NT%) 72.9 % 42.2-75.2 N LYMPHOCYTE % (test code = LY%) 16.6 % 20.5-51.1 L MONOCYTE % (test code = MO%) 7.7 % 1.7-9.3 N EOSINOPHIL % (test code = EO%) 2.0 % 0.0-7.0 N BASOPHIL % (test code = BA%) 0.5 % 0-2.5 N NEUTROPHIL # (test code = NT#) 7.43 x10 3/uL 1.80-7.70 N LYMPHOCYTE # (test code = LY#) 1.69 x10 3/uL 1.00-4.80 N MONOCYTE # (test code = MO#) 0.78 x10 3/uL 0.00-0.80 N EOSINOPHIL # (test code = EO#) 0.20 x10 3/uL 0.00-0.45 N BASOPHIL # (test code = BA#) 0.05 x10 3/uL 0.0-0.20 N [id number] 07:43:00* Test Item Value Reference Range Interpretation Comme nts GLUBED (test code = GLUBED) 145 MG/DL 70-105 H [id number] 22:25:00* Test Item Value Reference Range Interpretation Comme nts GLUBED (test code = GLUBED) 161 MG/DL 70-105 H [id number] 16:33:00* Test Item Value Reference Range Interpretation Comme nts GLUBED (test code = GLUBED) 117 MG/DL 70-105 H [id number] 14:46:00* Test Item Value Reference Range Interpretation Comme nts GLUBED (test code = GLUBED) 118 MG/DL 70-105 H URINALYSIS [id number] 10:50:00* Test Item Value Reference Range Interpretation Comme nts UA COLOR (test code = COLU) YELLOW DISCRIPT YELLOW UA APPEARANCE (test code = APPU) CLEAR DISCRIPT CLEAR UA GLUCOSE DIPSTICK (test code = DGLUU) >=1000 mg/dL NEGATIVE A UA BILIRUBIN DIPSTICK (test code = BILU) NEGATIVE NEGATIVE UA KETONE DIPSTICK (test cod e = KETU) NEGATIVE mg/dL NEGATIVE UA SPECIFIC GRAVITY (test code = SGU) 1.010 1.005-1.030 UA BLOOD DIPSTICK (test code = JOEL) NEGATIVE NEGATIVE UA PH DIPSTICK (test code = ITALIA) 7.0 5.0-9.0 UA PROTEIN DIPSTICK (test code = PROU) NEGATIVE mg/dL NEGATIVE UA UROBILINOGEN DIPSTICK (test code = URO) 0.2 mg/dL 0.2-1.0 UA NITRITE DIPSTICK (test code = BEATRIZ) NEGATIVE NEGATIVE UA LEUKOCYTE ESTERASE DIPSTICK (test code = LEUU) NEGATIVE NEGATIVE COMPREHENSIVE METABOLIC [id number] 09:04:00* Test Item Value Reference Range Interpretation Comme nts SODIUM (test code = NA) 136 mmol/L 136-145 N POTASSIUM (test code = K) 4.9 mmol/L 3.5-5.1 N CHLORIDE (test code = CL) 104 mmol/l 98-107 N CARBON DIOXIDE (test code = CO2) 22 mmol/L 20-31 N GLUCOSE (test code = GLU) 151 mg/dL 74-106 H BLOOD UREA NITROGEN (test code = BUN) 31 mg/dL 9-23 H GLOMERULAR FILTRATION RATE (test code = GFR) >=60 max estimate mL/min >60 The Glomerular Filtration Rate is a calculated parameterbased on serum Creatinine, patient age and sex. GFR valuesless than 60 mL/min/1.73 square meters are indicative ofChronic Kidney Disease. Values less than 15 mL/min/1.73square meters indicate Kidney failure. The calculation forGFR is based on the CKD-EPI (202) calculation. This formulais race indifferent and is the recommended formula for GFRby the National Kidney Foundation for Adults.The GFR will not calculate if the sex is unknown or if thepatient's age is <18 years. CREATININE (test code = CREAT) 1.20 mg/dL 0.70-1.30 N TOTAL PROTEIN (test code = PROT) 6.4 g/dL 5.7-8.2 N ALBUMIN (test code = ALB) 4.5 g/dL 3.2-4.8 N CALCIUM (test code = CA) 9.8 mg/dL 8.7-10.4 N BILIRUBIN TOTAL (test code = BILT) 1.0 mg/dL 0.3-1.2 N SGOT/AST (test code = AST) 22 U/L <34 N SGPT/ALT (test code = ALT) 13 U/L 10-49 N ALKALINE PHOSPHATASE (test code = ALKP) 75.0 U/L 46-116 N THROMBOPLASTIN TIME [id number] 09:00:00* Test Item Value Reference Range Interpretation Comme [facility] THROMBOPLASTIN TIME PARTIAL (test code = PTT) 31.4 secs 23.8-34.8 N INTERPRETATIVE D AMIE: Therapeutic range: Unfractionated Heparin: 60-90 seconds Argatroban: 60-90 seconds PROTHROMBIN [id number] 09:00:00* Test Item Value Reference Range Interpretation Comme [facility] PROTHROMBIN TIME PATIENT (test code = PTP) 10.2 SECONDS 10.3-12.9 L INTERNATIONAL NORMAL RATIO (test code = INR) 0.91 0.9-1.11 N INR goals are individualized based on patient specificfactors. The following are only general guidelines: Indications: INR Goal:1. Treatment of venous thromboembolism and 2.0 - 3.0 systemic anticoagulation in a variety of conditions, including atrial fibrillation and mechanical heart valves 2. Mechanical mitral and tricuspid valves, 2.5 - 3.5 systemic anticoagulation for high-risk conditions HGBA1C - GLYCOSYLATED [id number] 08:57:00* Test Item Value Reference Range Interpretation Comme nts GLYCOSYLATED HEMOGLOBIN (HA1C) (test code = GLYHGB) 6.4 % <5.7 H Diabetic >/= 6.5%Prediabetes 5.7-6.4%Normal < 5.7% CBC W/AUTO [id number] 08:49:00* Test Item Value Reference Range Interpretation Comme nts WHITE BLOOD CELL (test code = WBC) 7.5 x10 3/uL 4.8-10.8 N RED BLOOD CELL (test code = RBC) 5.34 x10 6/uL 4.70-6.10 N HEMOGLOBIN (test code = HGB) 17.1 g/dL 14.0-18.0 N HEMATOCRIT (test code = HCT) 52.3 % 42.0-52.0 H MEAN CELL VOLUME (test code = MCV) 97.9 fL 80.0-94.0 H MEAN CELL HGB (test code = MCH) 32.0 pg 27-31 H MEAN CELL HGB CONCENTRATION (test code = MCHC) 32.7 G/DL 33-36.5 L RED CELL DISTRIBUTION WIDTH (test code = RDW) 12.5 % 12.9-16.9 L PLATELET COUNT (test code = PLT) 170 x10 3/uL 150-440 N MEAN PLATELET VOLUME (test c ode = MPV) 9.0 fL 8.9-12.4 N NEUTROPHIL % (test code = NT%) 60.0 % 42.2-75.2 N LYMPHOCYTE % (test code = LY%) 25.9 % 20.5-51.1 N MONOCYTE % (test code = MO%) 9.3 % 1.7-9.3 N EOSINOPHIL % (test code = EO%) 3.6 % 0.0-7.0 N BASOPHIL % (test code = BA%) 0.9 % 0-2.5 N NEUTROPHIL # (test code = NT#) 4.51 x10 3/uL 1.80-7.70 N LYMPHOCYTE # (test code = LY#) 1.95 x10 3/uL 1.00-4.80 N MONOCYTE # (test code = MO#) 0.70 x10 3/uL 0.00-0.80 N EOSINOPHIL # (test code = EO#) 0.27 x10 3/uL 0.00-0.45 N BASOPHIL # (test code = BA#) 0.07 x10 3/uL 0.0-0.20 N [id number] 08:29:00* Test Item Value Reference Range Interpretation Comme nts GLUBED (test code = GLUBED) 172 MG/DL 70-105 H GLUCOSE BEDSIDE [id number] 12:40:00* Test Item Value Reference Range Interpretation Comme nts GLUCOSE BEDSIDE TESTING (azucena t code = GLUBED) 102 mg/dL 70-110 N [id number] 07:29:00* Test Item Value Reference Range Interpretation Comme nts MAGNESIUM (test code = MAG) 1.7 MG/DL 1.8-2.4 L COMPREHENSIVE METABOLIC [id number] 07:29:00* Test Item Value Reference Range Interpretation Comme nts SODIUM (test code = NA) 140 mmol/L 136-145 N POTASSIUM (test code = K) 4.5 mmol/L 3.4-5.0 N CHLORIDE (test code = CL) 104 mmol/L 98-107 N CARBON DIOXIDE (test code = CO2) 29 mmol/L 21-32 N ANION GAP (test code = GAP) 7 GAP calc 4-15 N GLUCOSE (test code = GLU) 116 MG/DL 70-110 H BLOOD UREA NITROGEN (test code = BUN) 25 MG/DL 7-18 H GLOMERULAR FILTRATION RATE (test code = GFR) >=60 max estimate estGFR >60 The Glomerular Filtration Rate is a calculated parameterbased on serum Creatinine, patient age and sex. GFR valuesless than 60 mL/min/1.73 square meters are indicative ofChronic Kidney Disease. Values less than 15 mL/min/1.73square meters indicate Kidney failure. The calculation forGFR is based on the CKD-EPI (2020) calculation. This formulais race indifferent and is the recommended formula for GFRby the National Kidney Foundation for Adults.The GFR will not calculate if the sex is unknown or if thepatient's age is <18 years. CREATININE (test code = CREAT) 1.1 MG/DL 0.6-1.0 H TOTAL PROTEIN (test code = PROT) 7.3 G/DL 6.4-8.2 N ALBUMIN (test code = ALB) 4.1 G/DL 3.4-5.0 N GLOBULIN (test code = GLOB) 3.2 GM/dL ALBUMIN/GLOBULIN RATIO (test code = A/G) 1.3 RATIO 1.2-2.2 N CALCIUM (test code = CA) 9.4 MG/DL 8.5-10.1 N BILIRUBIN TOTAL (test code = BILT) 0.7 MG/DL 0.0-1.0 N SGOT/AST (test code = AST) 19 Unit/L 15-37 N SGPT/ALT (test code = ALT) 26 Unit/L 30-65 L ALKALINE PHOSPHATASE TOTAL (test code = ALKP) 81 Unit/L 50-136 N LIPID PROFILE (CORONARY RISK)2024-06-07 07:29:00* Test Item Value Reference Range Interpretation Comme nts TRIGLYCERIDES (test code = TRIG) 136 MG/DL 0-150 N CHOLESTEROL (test code = CHOL) 175 MG/DL 133-200 N CHOLESTEROL/HDL RATIO (test code = CHOLHDL) 3.30 RATIO See_Comment RISK ASSOC IATED WITH CHOL/HDL RATIOS: RISK MALE FEMALE1/2 AVERAGE 3.43 3.27AVERAGE 4.97 4.442X AVERAGE 9.55 7.053X AVERAGE 23.39 11.04 NOTE THAT THE REFERENCE VALUE IS RELATED TO RISK LEVELS ASRECOMMENDED BY THE [facility]. [Automated message] The system which generated this result transmitted reference range: 0-. The reference range was not used to interpret this result as normal/abnormal. HDL CHOLESTEROL (test code = HDL) 53 MG/DL See_Comment L [Automated [employer]] The system which generated this result transmitted reference range: 60-. The reference range was not used to interpret this result as normal/abnormal. NON-HDL CHOLESTEROL (test code = NHDL) 122 mg/dL <130 LIPOPROTEIN LDL (test code = LDL) 99 MG/DL 0-129 N LDL/HDL (test code = LDL/HDL) 1.86 Ratio See_Comment N [Automated [employer]] The system which generated this result transmitted reference range: 1.48-3.22 Avg. The reference range was not used to interpret this result as normal/abnormal. PROTHROMBIN [id number] 07:20:00* Test Item Value Reference Range Interpretation Comme nts PT PATIENT (test code = PTP) 10.5 SECONDS 9.3-12.9 N INTERNATIONAL NORMAL RATIO (test code = INR) 0.94 INR Unit 0.8-1.2 N TARGET INR BY INDICATION Indication INR1. Prophylaxis of venous thrombosis 2.0 - 3.0 (orthopedic surgery), Prophylaxis of venous thrombosis (other than high-risk surgery), Treatment of Deep Vein Thrombosis/Pulmonary Embolism, Prevention of systemic embolism - Tissue heart valves, Acute Myocardial Infarction (to prevent systemic embolism), Valvular heart disease, Acute Myocardial Infarction (to prevent systemic embolism), Valvular heart disease, Atrial Fibrillation, Bileaflet mechanical valve in aortic position.2. Mechanical prosthetic valves (high risk), 2.5 - 3.5 Presence of Lupus Anticoagulant or Antiphospholipid Antibodies, Prevention of systemic embolism - Acute Myocardial Infarction (to prevent recurrent infarct). CBC W/AUTO [id number] 07:15:00* Test Item Value Reference Range Interpretation Comme nts WHITE BLOOD CELL (test code = WBC) 6.6 K/mm3 3.5-11.0 N RED BLOOD CELL (test code = RBC) 5.58 M/mm3 4.70-6.10 N HEMOGLOBIN (test code = HGB) 18.6 G/DL 12.3-15.9 H HEMATOCRIT (test code = HCT) 54.2 % 35.8-46.7 H MEAN CELL VOLUME (test code = MCV) 97.1 Fl 86.3-98.9 N MEAN CELL HGB (test code = MCH) 33.3 pg 28.9-34.4 N MEAN CELL HGB CONCETRATION (test code = MCHC) 34.3 G/DL 32.1-34.5 N RED CELL DISTRIBUTION WIDTH (test code = RDW) 12.3 SD 11.5-14.5 N PLATELET COUNT (test code = PLT) 168 K/mm3 150-450 N MEAN PLATELET VOLUME (test c ode = MPV) 9.00 fL 7.0-9.6 N NEUTROPHIL % (test code = NT%) 55.0 % 40-76 N IMMATURE GRANULOCYTE % (test code = IG%) 0.6 % 0.0-5.0 N LYMPHOCYTE % (test code = LY%) 30.7 % 20.5-51.1 N MONOCYTE % (test code = MO%) 8.7 % 1.7-9.3 N EOSINOPHIL % (test code = EO%) 4.1 % 0.0-6.0 N BASOPHIL % (test code = BA%) 0.9 % 0.0-2.0 N NUCLEATED RBC % (test code = NRBC%) 0.0 /100WBC% 0.0-1.0 N NEUTROPHIL # (test code = NT#) 3.6 K/mm3 1.8-7.6 N IMMATURE GRANULOCYTE # (test code = IG#) 0.04 x10 3/uL 0.00-0.03 H LYMPHOCYTE # (test code = LY#) 2.0 K/mm3 0.6-3.0 N MONOCYTE # (test code = MO#) 0.6 K/mm3 0.2-1.5 N EOSINOPHIL # (test code = EO#) 0.3 K/mm3 0.0-0.4 N BASOPHIL # (test code = BA#) 0.1 K/mm3 0.0-0.2 N NUCLEATED RBC # (test code = NRBC#) 0.0 K/mm3 0.00-0.01 N Notes Date/Time Note Provider Source 2024-07-15 12:07:00 [facility] ([facility]) Med Order Sheet REPORT #: [id number] REPORT STATUS: Signed DATE: 07/15/24 TIME: 1207 PATIENT: AARON VALENZUELA UNIT #: [id number] ROOM #: [facility] BED: A : 52 AGE: 73 SEX: M ATTEND: Kedar Funk MD ADM AUTHOR: Gerardo Sellers MD ATTENTION *EDITS and/or ADDENDA must be made in Patient Keeper for this note. * * Edits and ammendments created in Inside are not visible * * in Patient Keeper or the legal medical record (HPF). * Discharge Medication Reconciliation DISCHARGE MEDICATION LIST Atorvastatin Tab (Lipitor Tab) Dose: 20 MG PO DAILY Clopidogrel Tab (Plavix Tab) Dose: 75 MG PO DAILY Jardiance tablet (empagliflozin) Dose: 25 MG PO DAILY Lantus Solostar (nf) inpn 100 unit/mL (3 mL) (insulin glargine) Dose: 0 UNITS SubQ BID Lisinopril Tab (Prinivil Tab) Dose: 20 MG PO DAILY Lyrica cap (pregabalin) Dose: 200 MG PO TID TRULICITY Dose: 1.5 MG SubQ Q7D STOPPED HOSPITAL MEDICATIONS Dc'd: Dextrose 50% 50 ml Syringe (D50W 50 ml Syringe) 25ML IV ASDIR PRN hypoglycemia protocolDc'd: Glucagon Inj (Glucagon Inj) 1MG IM ASDIR PRN hypoglycemia protocolDc'd: HYDROcodone/APAP 10/325 Tab ([place] 10/325 Tab) 1TAB PO Q4H PRN pain scale 4-6 (use 1st)Dc'd: HYDROmorphone Inj (Dilaudid Inj) 1MG IV Q3H PRN pain scale 7-10Dc'd: Patient's Own Medication Jardiance 25 mg PO DAILY PO DAILYDc'd: Patient's Own Medication Trulicity 1.5mg/0.5ml SQ QSUN SubQ [id number] Signed in PatientKeeper by Geradro Sellers on 07/15/24 12:07 at 1207 ATTENTION *EDITS and/or ADDENDA must be made in Patient Keeper for this note. * * Edits and ammendments created in [facility] are not visible * * in Patient Keeper or the legal medical record (HPF). * RPT #: [id number] END OF REPORT [facility] 2024-07-15 12:06:00 [facility] Hospitalist D/C Summary REPORT #: [id number] REPORT STATUS: Signed DATE: 07/15/24 TIME: 1206 PATIENT: AARON VALENZUELA UNIT #: [id number] ROOM #: P.0405 BED: A : 52 AGE: 73 SEX: M ATTEND: Kedar Funk MD ADM AUTHOR: Gerardo Sellers MD ATTENTION *EDITS and/or ADDENDA must be made in Patient Keeper for this note. * * Edits and ammendments created in Inside are not visible * * in Patient Keeper or the legal medical record ([facility]). * Note Date: 07/15/24 12:06 -- PROBLEMS/PROCEDURES -- ADMISSION DATE: 07/14/2024 ADMITTING DIAGNOSIS: - Atherosclerosis of [place] arteries of extremities with intermittent claudication, right leg - Embolism and thrombosis of iliac artery - Essential (primary) hypertension - Type 2 diabetes mellitus without complication, unspecified whether ferry terminal agent insulin use DISCHARGE DATE: 07/15/24 DISCHARGE DIAGNOSIS: - Atherosclerosis of [place] arteries of extremities with intermittent claudication, right leg - Embolism and thrombosis of iliac artery - Essential (primary) hypertension - Type 2 diabetes mellitus without complication, unspecified whether ferry terminal agent insulin use -- HOSPITAL COURSE -- HOSPITAL COURSE: Patient underwent left to right femoral-femoral bypass by Dr. Funk and was admitted for postprocedure observation overnight. He reported significant improvement in claudication and leg pain after the procedure was done. He was continued on his usual regimen of atorvastatin, lisinopril, and Lyrica. He takes Trulicity and glargine injections for diabetes at home. Smoking cessation was strongly advised. At the time of discharge, patient was stable and ambulatory. He will follow-up with in vascular clinic as directed. Total discharge preparation, floor time, and discussion with other providers was 50 minutes. -- DISCHARGE MEDICATIONS -- ALLERGIES - No Known Allergies ( UNKNOWN - Allergy ) - [EXTERNAL] No Known Allergies ( UNKNOWN - External allergies are for display only, consider adding to medical record for drug interaction check ) DISCHARGE MEDICATIONS - Atorvastatin Tab (Lipitor Tab) 20 MG PO DAILY - Clopidogrel Tab (Plavix Tab) 75 MG PO DAILY - Jardiance tablet (empagliflozin) 25 MG PO DAILY - Lantus Solostar (nf) inpn 100 unit/mL (3 mL) (insulin glargine) 0 UNITS SubQ BID - Lisinopril Tab (Prinivil Tab) 20 MG PO DAILY - Lyrica cap (pregabalin) 200 MG PO TID - TRULICITY 1.5 MG SubQ Q7D -- DISCHARGE INSTRUCTIONS -- PENDING LABS/TESTS AT DISCHARGE PENDING LABS: none PENDING TESTS: none PK DISCHARGE ORDERS Discharge Brandan w/instruction Details: Order number: [id number] Category: PKDC - PK DISCHARGE ORDERS Order status: Transmitted Details: Discharge Parameters: Voiding asymptomatically Discharge home after patient has voided. Discharge order with parameter: Yes Notify attending when discharge parameter met: No Discharge to: Home/Self Care Diet: Resume Home Diet/Feeds Activity: No Strenuous Activity PCP follow up timeframe: In 1-2 weeks Notify PCP of Signs/Symptoms: Increased swelling Increased tenderness/pain Moderate/large bleeding Temp. 101 or greater Follow up labs, procedures, treatments: Follow up with Dr. Funk as directed by him. 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 -- OBJECTIVE -- VITALS (07/14 12:06 - 07/15 12:06): Pulse Rate: 95 (68 - 95) Blood pressure: 113/60 (99/48 - 162/72) Blood pressure source: Monitor Respiratory rate: 16 (13 - 21) Temperature C: 36.5 (36.4 - 36.8) Temperature source: Oral I/OS (07/14 07:00-07/15 07:00): Net-1,328 [id number] Output1,550 Amount taken:100 Oral ml:222 Urinary catheter ml:1,550 -- DATA -- ALLERGIES LAB RESULTS GLU BED (07/15/24 07:32) GLUBED 145 H CBC W/AUTO DIFF (07/15/24 09:08) LYMPHOCYTE % 16.6 L NEUTROPHIL % 72.9 NEUTROPHIL # 7.43 BASOPHIL % 0.5 EOSINOPHIL % 2 MONOCYTE % 7.7 PLATELET COUNT 170 RED CELL DISTRIBUTION WIDTH 12.5 L MEAN CELL HGB CONCENTRATION 32.7 L MEAN CELL HGB 32.4 H MEAN PLATELET VOLUME 9.1 BASOPHIL # 0.05 WHITE BLOOD CELL 10.2 EOSINOPHIL # 0.2 MONOCYTE # 0.78 LYMPHOCYTE # 1.69 MEAN CELL VOLUME 99 H HEMATOCRIT 48.9 HEMOGLOBIN 16 RED BLOOD CELL 4.94 BASIC METABOLIC PANEL (07/15/24 09:08) SODIUM 133L L POTASSIUM 5 GLUCOSE 221H H BLOOD UREA NITROGEN 20 CHLORIDE 97L L CARBON DIOXIDE 29 CALCIUM 9.5 GLOMERULAR FILTRATION RATE >=60 max estimate CREATININE 1.2 GLU BED (07/15/24 11:14) GLUBED 202 H at 1612 ATTENTION *EDITS and/or ADDENDA must be made in Patient Keeper for this note. * * Edits and ammendments created in [facility] are not visible * * in Patient Keeper or the legal medical record (HPF). * RPT #: [id number] END OF REPORT [facility] 2024-07-15 11:01:00 [facility] ([facility]) Vascular Surg. Progress Note REPORT #: [id number] REPORT STATUS: Signed DATE: 07/15/24 TIME: 1101 PATIENT: AARON VALENZUELA UNIT #: [id number] ROOM #: P.0405 BED: A : 52 AGE: 73 SEX: M ATTEND: Kedar Funk MD ADM AUTHOR: Alexx Batres MD R2 ATTENTION *EDITS and/or ADDENDA must be made in Patient Keeper for this note. * * Edits and ammendments created in Inside are not visible * * in Patient Keeper or the legal medical record (HPF). * Attending: Kedar Funk MD 07/15/24 11:17 I saw and examined the patient with Dr. Batres. I agree with the history and exam in the note attached. Will remove Colon catheter, ambulate, and may discharge home today if okay with hospitalist. Note Date: 07/15/24 11:01 -- ASSESSMENT/PLAN -- GENERAL ASSESSMENT: Aaron Tam is a 73-year-old male with PMHx of type 2 diabetes, hypertension, tobacco use and right leg claudication who is s/p left to right femoral-femoral bypass Vitals reviewed Labs reviewed Plan Postop supportive care Continue home meds Ambulate as tolerated PT ordered Discontinue Colon catheter Tobacco cessation Okay for discharge today from a vascular surgery standpoint given patient is able to ambulate -- SUBJECTIVE -- PATIENT NARRATIVE: Patient reports he is doing well this morning No acute events overnight Pain is controlled Tolerating diet Reports improved sensation in right lower extremity REVIEW OF SYSTEMS: General No for fever, malaise, fatigue. Eyes Negative for blurry vision. No diplopia. Ears/Nose/Throat Negative for sore throat. No otalgia. No rhinorrhea. Respiratory Negative for dyspnea or wheeze. No cough. Cardiovascular Negative for chest pain or palpitations. No extremity swelling. Gastrointestinal Negative for abdominal pain or nausea. No emesis. No diarrhea. Genitourinary Negative for dysuria, frequency, or urgency. No gross hematuria. Musculoskeletal Improved sensation in RLE Skin Negative for rashes. No pruritus. Psychiatric Negative for specific complaints. -- EXAM -- VITALS (07/14 11:01 - 07/15 11:01): Pulse Rate: 71 (68 - 91) Blood pressure: 141/64 (99/48 - 162/72) Blood pressure source: Monitor Respiratory rate: 13 (13 - 21) Temperature source: Oral Temperature C: 36.7 (36.4 - 36.8) IOS (07/14 07:00-07/15 07:00): Net-1,328 [id number] Output1,550 Amount taken:100 Oral ml:222 Urinary catheter ml:1,550 EXAM: General Well developed, well nourished, in no apparent distress. Eating food. Head Normocephalic, atraumatic. Eyes PERRL, EOM intact, conjunctiva and sclera clear, without nystagmus, lids normal. Lungs Clear bilaterally with normal respiratory effort. Heart Regular rate and rhythm, normal S1, S2, no murmurs, no rubs, no gallops, no clicks. Abdomen Soft, non-tender, no organomegaly, no masses noted. Bilateral groin incision intact with dressing in place Extremities No clubbing, no cyanosis, no edema. Skin Femoral surgical sites bandaged. Psychiatric Alert and oriented to time, person, place. Normal mood and affect, intact judgment and insight. -- DATA -- MEDICATIONS HYDROcodone BITARTRATE/APAP 1 TAB PO Q4H PRN PATIENT'S OWN MEDICATION Trulicity 1.5mg/0.5ml SQ QSUN SUBQ Q7D clopidogreL 75 MG PO DAILY lisinopriL 20 MG PO DAILY DEXTROSE 50%-WATER 25 ML IV ASDIR (PRN) INSULIN GLARGINE 20 UNITS SUBQ BID HYDROmorphone HCL 1 MG IV Q3H (PRN) GLUCAGON 1 MG IM ASDIR (PRN) PATIENT'S OWN MEDICATION Jardiance 25 mg PO DAILY PO DAILY ATORVASTATIN CALCIUM 20 MG PO DAILY LAB RESULTS GLU BED (07/15/24 07:32) GLUBED 145 H CBC W/AUTO DIFF (07/15/24 09:08) LYMPHOCYTE % 16.6 L NEUTROPHIL % 72.9 NEUTROPHIL # 7.43 BASOPHIL % 0.5 EOSINOPHIL % 2.0 MONOCYTE % 7.7 PLATELET COUNT 170 RED CELL DISTRIBUTION WIDTH 12.5 L MEAN CELL HGB CONCENTRATION 32.7 L MEAN CELL HGB 32.4 H MEAN PLATELET VOLUME 9.1 BASOPHIL # 0.05 WHITE BLOOD CELL 10.2 EOSINOPHIL # 0.20 MONOCYTE # 0.78 LYMPHOCYTE # 1.69 MEAN CELL VOLUME 99.0 H HEMATOCRIT 48.9 HEMOGLOBIN 16.0 RED BLOOD CELL 4.94 BASIC METABOLIC PANEL (07/15/24 09:08) SODIUM 133L L POTASSIUM 5.0 GLUCOSE 221H H BLOOD UREA NITROGEN 20 CHLORIDE 97L L CARBON DIOXIDE 29 CALCIUM 9.5 GLOMERULAR FILTRATION RATE >=60 max estimate CREATININE 1.20 at 1117 at 1117 ATTENTION *EDITS and/or ADDENDA must be made in Patient Keeper for this note. * * Edits and ammendments created in [facility] are not visible * * in Patient Keeper or the legal medical record (HPF). * RPT #: [id number] END OF REPORT [facility] 2024-07-14 18:05:00 [facility] ([facility]) Yohan Bailey REPORT #: [id number] REPORT STATUS: Signed DATE: 07/14/24 TIME: 180 PATIENT: AARON VALENZUELA UNIT #: [id number] ROOM #: P.0405 BED: A : 52 AGE: 73 SEX: M ATTEND: Kedar Funk MD ADM AUTHOR: Gerardo Sellers MD ATTENTION *EDITS and/or ADDENDA must be made in Patient Keeper for this note. * * Edits and ammendments created in Inside are not visible * * in Patient Keeper or the legal medical record (HPF). * Note Date: 07/14/24 18:05 -- HISTORY -- ADMISSION DATE 07/14/2024 Primary care provider:Primary or Family Physician, No CHIEF COMPLAINT: Right leg claudication HPI: Patient is a 73 yo man with PAD, Htn, DM, who underwent fem-fem bypass by Dr. HUMPHREYS today. is at bedside. Patient reports chronic pain in the right leg with ambulation, which has now significantly improved after undergoing bypass procedure today. He had an angiogram at [facility] in [place] which showed a right iliac occlusion which was not amenable to percutaneous repair, so he underwent left to right femorofemoral bypass. He has no history of cardiac disease. He smokes 2 packs a day, and declines nicotine patch. PAST MEDICAL HISTORY: Hypertension Diabetes Peripheral artery disease FAMILY HISTORY: Noncontributory Social History Tobacco use: DETAILS/COMMENTS: Smokes 2 packs of cigarettes a day Alcohol use: DETAILS/COMMENTS: No alcohol abuse Drug use: DETAILS/COMMENTS: No drug use -- ALLERGIES/HOME MEDS -- Modifications made in this section do not update Allergy and Home Medication List ALLERGIES - No Known Allergies ( UNKNOWN - Allergy ) - [EXTERNAL] No Known Allergies ( UNKNOWN - External allergies are for display only, consider adding to medical record for drug interaction check ) HOME MEDICATIONS - Atorvastatin Tab (Lipitor Tab) (PO - DAILY - 20 MG) - Clopidogrel Tab (Plavix Tab) (PO - DAILY - 75 MG) - Jardiance tablet (empagliflozin) (PO - DAILY - 25 MG) - Lantus Solostar (nf) inpn 100 unit/mL (3 mL) (insulin glargine) (SubQ - BID - 0 UNITS) - Lisinopril Tab (Prinivil Tab) (PO - DAILY - 20 MG) - Lyrica cap (pregabalin) (PO - TID - 200 MG) - Med Rec Order Def (SubQ - Q7D - 1.5 MG) -- SUBJECTIVE -- REVIEW OF SYSTEMS: General: No for fever, malaise, fatigue. Eyes: Negative for blurry vision. No diplopia. Ears/Nose/Throat: Negative for sore throat. No otalgia. No rhinorrhea. Respiratory: Negative for dyspnea or wheeze. No cough. Cardiovascular: Negative for chest pain or palpitations. No extremity swelling. Gastrointestinal: Negative for abdominal pain or nausea. No emesis. No diarrhea. Genitourinary: Negative for dysuria, frequency, or urgency. No gross hematuria. Musculoskeletal: Right leg claudication. Skin: Negative for rashes. No pruritus. Psychiatric: Negative for specific complaints. -- EXAM -- VITALS (07/13 18:05 - 07/14 18:05): Blood pressure: 129/76 Respiratory rate: 16 Temperature C: 36.4 (36.4 - 36.5) Temperature source: Oral Pulse Rate: 67 EXAM: General: Well developed, well nourished, in no apparent distress. Eating food. Head: Normocephalic, atraumatic. Eyes: PERRL, EOM intact, conjunctiva and sclera clear, without nystagmus, lids normal. Lungs: Clear bilaterally with normal respiratory effort. Heart: Regular rate and rhythm, normal S1, S2, no murmurs, no rubs, no gallops, no clicks. Abdomen: Soft, non-tender, no organomegaly, no masses noted. Extremities: No clubbing, no cyanosis, no edema. Skin: Femoral surgical sites bandaged. Psychiatric: Alert and oriented to time, person, place. Normal mood and affect, intact judgment and insight. -- DATA -- ALLERGIES LAB RESULTS PTT (07/14/24 07:49) THROMBOPLASTIN TIME PARTIAL 31.4 PROTHROMBIN TIME (07/14/24 07:49) INTERNATIONAL NORMAL RATIO 0.91 PROTHROMBIN TIME PATIENT 10.2 L HGBA1C - GLYCOSYLATED HGB (07/14/24 07:49) GLYCOSYLATED HEMOGLOBIN (HA1C) 6.4 H URINALYSIS DIPSTICK (07/14/24 07:49) UA UROBILINOGEN DIPSTICK 0.2 UA LEUKOCYTE ESTERASE DIPSTICK NEGATIVE UA COLOR YELLOW UA NITRITE DIPSTICK NEGATIVE UA KETONE DIPSTICK NEGATIVE UA BILIRUBIN DIPSTICK NEGATIVE UA GLUCOSE DIPSTICK >=1000 A UA APPEARANCE CLEAR UA PROTEIN DIPSTICK NEGATIVE UA PH DIPSTICK 7 UA BLOOD DIPSTICK NEGATIVE UA SPECIFIC GRAVITY 1.01 CBC W/AUTO DIFF (07/14/24 07:49) MEAN PLATELET VOLUME 9 BASOPHIL # 0.07 PLATELET COUNT 170 RED CELL DISTRIBUTION WIDTH 12.5 L MEAN CELL HGB CONCENTRATION 32.7 L MEAN CELL HGB 32 H MEAN CELL VOLUME 97.9 H HEMATOCRIT 52.3H H HEMOGLOBIN 17.1 RED BLOOD CELL 5.34 WHITE BLOOD CELL 7.5 EOSINOPHIL # 0.27 MONOCYTE # 0.7 LYMPHOCYTE # 1.95 NEUTROPHIL # 4.51 BASOPHIL % 0.9 EOSINOPHIL % 3.6 MONOCYTE % 9.3 LYMPHOCYTE % 25.9 NEUTROPHIL % 60 COMPREHENSIVE METABOLIC PANEL (07/14/24 07:49) ALBUMIN 4.5 TOTAL PROTEIN 6.4 CREATININE 1.2 GLOMERULAR FILTRATION RATE >=60 max estimate BLOOD UREA NITROGEN 31 H GLUCOSE 151 H CARBON DIOXIDE 22 CHLORIDE 104 POTASSIUM 4.9 SODIUM 136 ALKALINE PHOSPHATASE 75 SGPT/ALT 13 SGOT/AST 22 BILIRUBIN TOTAL 1 CALCIUM 9.8 GLU BED (07/14/24 08:18) GLUBED 172 H GLU BED (07/14/24 14:35) GLUBED 118 H GLU BED (07/14/24 16:22) GLUBED 117 H -- ASSESSMENT/PLAN -- GENERAL ASSESSMENT: Severe PAD and claudication, s/p left to right femoral femoral bypass, hypertension, diabetes, dyslipidemia. 1. Postop supportive care. 2. Continue atorvastatin, lisinopril, and Lyrica as per home regimen. 3. Glucose is 117, so I advised that he take his usual Trulicity at this time. I will hold off on glargine injection for now; he typically takes 20 units in a.m. and 10 units in p.m. 4. Ambulate when able. 5. Possible discharge home tomorrow if no acute issues. 6. Smoking cessation strongly advised. -- ATTESTATION -- Time Spent on Patient Care DIRECT 30 minutes COORDINATION OF CARE 45 minutes SMOKING CESSATION > 50% of time spent on counseling/care coordination Care Activities / Care Coordination I have reviewed the history and repeated the lee elements I have seen and examined this patient I have discussed the patient's condition with other members of the care team at 1905 ATTENTION *EDITS and/or ADDENDA must be made in Patient Keeper for this note. * * Edits and ammendments created in Inside are not visible * * in Patient Keeper or the legal medical record (HPF). * RPT #: [id number] END OF REPORT [facility] 2024-07-14 15:04:00 [facility] ([facility]) Med Order Sheet REPORT #: [id number] REPORT STATUS: Signed DATE: 07/14/24 TIME: 1504 PATIENT: AARON VALENZUELA UNIT #: [id number] ROOM #: P.PRE OPBED: 1 : [birth year] AGE: 73 SEX: M ATTEND: Kedar Funk MD ADM AUTHOR: Kedar Funk MD ATTENTION *EDITS and/or ADDENDA must be made in Patient Keeper for this note. * * Edits and ammendments created in [facility] are not visible * * in Patient Keeper or the legal medical record (HPF). * Admission Medication Reconciliation -- CONTINUED / CHANGED HOME MEDICATIONS -- Home: Atorvastatin Tab (Lipitor Tab) 20 MG PO DAILY Hosp: Atorvastatin Tab (Lipitor Tab) 20 MG PO DAILY Home: Clopidogrel Tab (Plavix Tab) 75 MG PO DAILY Hosp: Clopidogrel Tab (Plavix Tab) 75 MG PO DAILY Home: Jardiance tablet (empagliflozin) 25 MG PO DAILY Hosp: Jardiance tablet (empagliflozin) 25 MG PO DAILY Home: Lantus Solostar (nf) inpn 100 unit/mL (3 mL) (insulin glargine) 0 UNITS SubQ BID Hosp: Lantus Solostar (nf) inpn 100 unit/mL (3 mL) (insulin glargine) 0 UNITS SubQ BID Home: Lisinopril Tab (Prinivil Tab) 20 MG PO DAILY Hosp: Lisinopril Tab (Prinivil Tab) 20 MG PO DAILY Home: Lyrica cap (pregabalin) 200 MG PO TID Hosp: Existing: Pregabalin Cap (Lyrica Cap) 75MG PO PACU stopping on 07/15 at 02:46 Home: TRULICITY 1.5 MG SubQ Q7D Hosp: Trulicity 1.5 mg/0.5 mL subcutaneous pen injector (dulaglutide) 1.5 MG SubQ Q7D at 1504 ATTENTION *EDITS and/or ADDENDA must be made in Patient Keeper for this note. * * Edits and ammendments created in Inside are not visible * * in Patient Keeper or the legal medical record ([facility]). * RPT #: [id number] END OF REPORT [facility] 2024-07-14 14:50:00 [facility] ([facility]) Operative Report REPORT #: [id number] REPORT STATUS: Signed DATE: 07/14/24 TIME: 1450 PATIENT: AARON VALENZUELA UNIT #: [id number] ROOM #: P.PRE OPBED: 1 : 52 AGE: 73 SEX: M ATTEND: Kedar Funk MD ADM AUTHOR: Kedar Funk MD ATTENTION *EDITS and/or ADDENDA must be made in Patient Keeper for this note. * * Edits and ammendments created in Inside are not visible * * in Patient Keeper or the legal medical record ([facility]). * Note Date: 07/14/24 14:50 -- OPERATION -- SURGERY START DATE/TIME 07/14/2024 14:50 PRE-OPERATIVE DIAGNOSIS: 1. Severe right leg claudication. 2. Tobacco use. 3. Type 2 diabetes mellitus. 4. Chronic hypertension. 5. Right iliac artery occlusion. POST-OPERATIVE DIAGNOSIS: 1. Severe right leg claudication. 2. Tobacco use. 3. Type 2 diabetes mellitus. 4. Chronic hypertension. 5. Right iliac artery occlusion. INDICATION(S): Patient is a 73-year-old man with type 2 diabetes, hypertension, tobacco use, and severe right leg claudication and paresthesias. He had angiogram at [facility] showing right iliac occlusion not amenable to percutaneous repair. He is a candidate for left to right femoral-femoral bypass. NAME OF PROCEDURE: Left to right femoral-femoral bypass using Hemashield [place] 8 mm woven polyester graft. Time out completed:: Yes Surgeon:Kedar Funk MD SINGLE FOLD MACHINE OPERATOR(S): Alexx Batres MD ANESTHESIA: General Endotracheal ESTIMATED BLOOD LOSS 25 mls FINDINGS: Palpable pulse was noted distal to the repair and the [place] arteries at the conclusion of the case. SPECIMENS(S) REMOVED AND/OR ALTERED: None COMPLICATION(S): None -- DESCRIPTION -- DESCRIPTION OF TECHNIQUE/PROCEDURE: Medications: 2 g Ancef; 9000 units heparin; 20 mg protamine. Procedure detail: Patient was identified in the preprocedure holding area and brought into the operating room where general endotracheal anesthesia was induced. The bilateral groins were prepped and draped in the usual sterile fashion. Intravenous antibiotics were given. A timeout was performed. A mixture of 1% lidocaine and 0.5% ropivacaine was infused into the bilateral groins. Bilateral longitudinal groin incisions were made with a #10 blade. Dissection through the subcutaneous tissues was carried out with electrocautery. Lymphatics were ligated between 2-0 silk suture. The bilateral common femoral arteries were identified and circumferentially dissected free with Metzenbaum scissors. A suprapubic tunnel was created with blunt finger dissection. An 8 mm polyester graft was soaked in rifampin antibiotic solution and passed through the tunnel with oh ring forceps. Heparin was given. Clamps were applied to the bilateral common femoral arteries. Longitudinal arteriotomy was made were made with a #11 blade and extended with Perez scissors. Stay sutures were applied. The graft was transected to appropriate length with a bevel. Bilateral end-to-side anastomoses were created with 6-0 Prolene suture in a running fashion. Prior to completion of the repairs, clamps were briefly released to allow for backbleeding. The anastomoses were completed and the clamps were sequentially released. Palpable pulse was noted in the bypass and in the [place] arteries distal to the repair. Protamine was given. Wounds were inspected for hemostasis and closed in layers with interrupted 2-0 PDS suture followed by running 3-0 Vicryl suture. Skin was closed with surgical clips. Sterile dressings were applied. The patient tolerated the procedure well and was extubated at the conclusion of the case. He was transferred to the postanesthesia care unit in satisfactory condition. Lap, needle, and instrument counts were correct. I was scrubbed and present for the entire case. at 1501 ATTENTION *EDITS and/or ADDENDA must be made in Patient Keeper for this note. * * Edits and ammendments created in Inside are not visible * * in Patient Keeper or the legal medical record ([facility]). * [facility] #: [id number] END OF REPORT [facility] 2024-07-14 14:28:00 [facility] Brief Operative Report REPORT #: [id number] REPORT STATUS: Signed DATE: 07/14/24 TIME: 1428 PATIENT: AARON VALENZUELA UNIT #: [id number] ROOM #: P.PRE OPBED: 1 : 52 AGE: 73 SEX: M ATTEND: Kedar Funk MD [facility] AUTHOR: Alexx Batres MD R2 ATTENTION *EDITS and/or ADDENDA must be made in Patient Keeper for this note. * * Edits and ammendments created in Inside are not visible * * in Patient Keeper or the legal medical record ([facility]). * Note Date: 07/14/24 14:28 -- BRIEF OP NOTE -- PRE-OPERATIVE DIAGNOSIS: R iliac artery stenosis POST-OPERATIVE DIAGNOSIS: R iliac artery stenosis NAME OF PROCEDURE: Left to right Femoral to Femoral Artery Bypass Surgeon:Kedar Funk MD SINGLE FOLD MACHINE OPERATOR(S): Terry Batres MD R2 FINDINGS: None ESTIMATED BLOOD LOSS 50 mls SPECIMENS(S) REMOVED AND/OR ALTERED: None COMPLICATION(S): None at 1502 at 1502 ATTENTION *EDITS and/or ADDENDA must be made in Patient Keeper for this note. * * Edits and ammendments created in Inside are not visible * * in Patient Keeper or the legal medical record ([facility]). * [facility] #: [id number] END OF REPORT [facility] 2024-06-07 12:10:00 [id number] [facility] [address] [place] [address] PATIENT NAME: AARON VALENZUELA ADMIT DATE: 06/07/24 ACCOUNT NO: [id number] ROOM NO: AGE: 73 REPORT TYPE: OPERATIVE REPORT SEX: M ADMITTING PHYSICIAN: ATTENDING PHYSICIAN: Yaima Bahena MD Cardiology OPERATION DATE: 06/07/2024 MAILING MANAGER: Yaima Bahena MD PREOPERATIVE DIAGNOSIS: POSTOPERATIVE DIAGNOSIS: SINGLE FOLD MACHINE OPERATOR: TITLE OF PROCEDURE 1. Abdominal and bilateral selective iliofemoral angiograms. 2. First order angiograms of bilateral lower extremities. INDICATION FOR THE PROCEDURE: Disabling claudication of bilateral lower extremities, worse on the right. ESTIMATED BLOOD LOSS: Minimal. COMPLICATIONS: None. CONTRAST: 70 mL. ANESTHESIA: Conscious sedation with Versed and fentanyl and 1% lidocaine for local anesthesia. FINAL DIAGNOSIS: 30% infrarenal aortic plaquing, renal arteries appear to be without significant angiographic disease. The right common iliac is occluded completely from a small stump in the beginning all the way to the origin of the internal iliac that appears to be hard calcified occlusion that has been there for a while, the left common iliac is 50% at its origin, left external iliac with 30% plaquing, 40% to 50% disease on the left SFA and popliteal and the right SFA was 40%. There are 3-vessel runoffs distally with slow flow. The recommendation is referral for surgery likely aortobifemoral bypass rather than a fem-fem bypass. PROCEDURE IN DETAIL: After informed consent, the patient presented to the cardiac catheterization lab in a stable, fasting, nonsedated state. He was prepped and draped in the usual sterile fashion. After conscious sedation, 1% lidocaine was administered first to the left common femoral artery area for local anesthesia, a 6-Malay sheath was placed in the left common femoral artery using standard techniques and fluoroscopy. A selective angiogram of the left PATIENT NAME: AARON VALENZUELA lower extremity showed 30% plaquing of the external iliac on the left, 50% distal SFA, 40% popliteal on the left with 3-vessel runoff with slow flow. Abdominal angiogram showed 30% infrarenal aortic plaquing. The renal arteries appeared to be free of angiographic disease. There is 100% occlusion of the right common iliac after a small stump. The left common iliac was 50% disease, but there was no gradient upon pullback of the catheter. At that time, I did access the right common femoral artery using standard techniques and fluoroscopy and local anesthesia. A selective angiogram of the right lower extremity first orders were 20% plaquing of the proximal SFA, 40% of the distal SFA and 30% of the popliteal with 3-vessel runoff with slow flow. I tried crossing the 100% occlusion using the NaviCross along with a [place] Advantage wire and the CARR catheter from both sides. The wire would not go intraluminal. The plaque was very hard and appears to have been occluded for a while that correlates with his symptoms, so the patient will be referred for surgical intervention. I was not able to seal the right groin, so manual pressure was held and the left groin was sealed using Angio-Seal. There were no complications. The patient tolerated the procedure well and was transferred to the holding area for observation to be discharged in about 4 hours to be set up as outpatient for surgical evaluation. Dictated By: Yaima Bahena MD Date Dictated: 06/07/2024 12:10:47 Date Transcribed: 06/07/2024 17:23:18 SRIDEVI/KATIE Receipt ID: [id number] Authenticated by Yaima Bahena MD On 06/08/2024 06:44:40 AM at 0644 PATIENT NAME: AARON VALENZUELA [facility] 2024-06-07 07:11:00 [id number] [address] PATIENT NAME: AARON VALENZUELA ADMIT DATE: 06/07/24 ACCOUNT NO: [id number] ROOM NO: AGE: 73 REPORT TYPE: eELECTROCARDIOGRAM SEX: M ADMITTING PHYSICIAN: ATTENDING PHYSICIAN: Yaima Bahena MD Order: [id number] Test Reason : PRE OP Test Date/Time Stamp: [facility] Jun 07 2024 07:11:58 Blood Pressure : / mmHG Vent. Rate : 072 BPM Atrial Rate : 072 BPM P-R Int : 242 ms QRS Dur : 100 ms QT Int : 362 ms P-R-T Axes : 076 085 055 degrees QTc Int : 396 ms Sinus rhythm with 1st degree AV block Otherwise normal ECG No previous ECGs available Confirmed by YAIMA BAHENA ([id number]) on 06/07/2024 7:18:47 AM Referred By: Yaima Bahena Confirmed by:YAIMA BAHENA at 0718 PATIENT NAME: AARON VALENZUELA [facility] 2024-06-05 07:27:00 [id number] [address] PATIENT NAME: AARON VALENZUELA ADMIT DATE: ACCOUNT NO: [id number] ROOM NO: AGE: 73 REPORT TYPE: HISTORY AND PHYSICAL SEX: M ADMITTING PHYSICIAN: ATTENDING PHYSICIAN: Yaima Bahena MD Cardiology PATIENT NAME: AARON VALENZUELA ADMIT DATE:06/07/2024 ADMISSION DATE: 06/07/2024 06:00:00 ADMISSION HISTORY AND PHYSICAL MAILING MANAGER: Yaima Bahena MD REASON FOR ADMISSION: Symptomatic peripheral arterial disease for peripheral angiograms and possible revascularization. HISTORY OF PRESENT ILLNESS: Aaron Valenzuela is a 73-year-old new patient to my practice as of 05/28/2024, who came in for evaluation of atherosclerotic cardiovascular disease. He has been symptomatic with peripheral arterial disease, basically both lower extremities equally. He has multiple cardiovascular risk factors. He underwent noninvasive cardiovascular workup with a right ankle brachial index of 0.59, severe iliofemoral disease. The left of 0.84, mild infrapopliteal disease. He had a negative nuclear stress test chemical. He had an echocardiogram with hypertensive changes and mild mitral regurgitation. Carotid Doppler less than 50% disease, normal baseline EKG. Given his symptoms and the patient's findings, he is here for abdominal and bilateral selective iliofemoral angiograms with the access from the left groin. The patient denies any angina, dyspnea, congestive heart failure, TIAs or strokes. PAST MEDICAL HISTORY: Remarkable for the above, in addition to hypertension, hyperlipidemia, diabetes, diabetic neuropathy, osteoarthritis, cervical radiculopathy, lumbar radiculopathy and vitamin D deficiency. PAST SURGICAL HISTORY: He has had right hand nuchal surgery in 2011. ALLERGIES: NO KNOWN DRUG ALLERGIES. MEDICATIONS: He has been on aspirin 81 mg daily, vitamin D3, Trulicity, insulin, lisinopril 20 mg daily, atorvastatin 20 mg, he takes half daily; Jardiance 25 mg daily and I started him on clopidogrel 75 mg daily. SOCIAL HISTORY: The patient smokes on a regular basis. He is trying to quit. He drinks alcohol socially. There is no history of street drug use. FAMILY HISTORY: Positive for atherosclerotic cardiovascular disease. Family history is enclosed. PATIENT NAME: AARON VALENZUELA REVIEW OF SYSTEMS: Enclosed with cough, diabetes related symptoms, neuropathy, numbness. His leg numbness appears to be a combination of peripheral arterial disease and neuropathy. The rest of the review of systems is enclosed. No acute GI or symptoms. No TIAs or strokes. PHYSICAL EXAMINATION: GENERAL: Reveals a pleasant elderly male in no acute distress. VITAL SIGNS: Blood pressure 114/72, pulse 72 and regular, respiratory rate 16 and unlabored, temperature afebrile. HEENT: Head atraumatic, normocephalic. Eyes and ENT examination within normal for age. NECK: Supple, no jugular venous distention, bruits or lymphadenopathy. Normal upstroke. LUNGS: Clear and resonant. Decreased air entry at the bases noted. HEART: Regular rate and rhythm with 2/6 systolic ejection murmur at the left lower sternal border. No gallops. ABDOMEN: Soft, no tenderness, no organomegaly, no masses or bruits. EXTREMITIES: 1+ distal pulses. No edema, cyanosis or clubbing. NEUROLOGIC: Alert and oriented x3. Examination appears to be nonfocal. LABORATORY DATA: Pending. Noninvasive cardiovascular workup enclosed. IMPRESSION: This is a 73-year-old patient with symptomatic peripheral arterial disease with minimal activity. He also has symptoms of neuropathy. He has multiple cardiovascular risk factors and abnormal lower arterial Doppler examination, especially on the right leg. RECOMMENDATIONS: The recommendation is to proceed with abdominal and bilateral selective iliofemoral angiograms. The access will be from the left groin and we will plan to intervene on the right lower extremity if indicated. The recommendation is to proceed with above-mentioned procedures. The risks and benefits of the planned procedures were discussed in detail with the patient and available family members and he is willing to proceed. The patient was strongly advised to quit smoking and follow risk factor modification. Rest as per orders. Dictated By: Yaima Bahena MD Date Dictated: 06/05/2024 07:27:51 Date Transcribed: 06/05/2024 08:08:58 SRIDEVI/BING Receipt ID: [id number] Authenticated and Edited by Yaima Bahena MD On 06/06/24 4:10:36 PM at 0413 PATIENT NAME: AARON VALENZUELA [facility]
[2025-04-17] MEDS ORDERED: LIDOCAINE 1% 20 ML MDV ONE (18:23)
[2025-04-17 18:30] LABS: Absolute Lymphocytes (CBC) 1.3 K/uL (0.7-4.9); Hematocrit 44.3 % (39.6-49.0); Hemoglobin 15.2 g/dL (13.6-17.9); MCH 33.5 pg (27.0-35.0); MCHC 34.3 g/dL (32.0-36.0); MCV 97.4 fL (80-100); MPV 7.3 fL (7.6-11.3); Nucleated RBC Absolute Count 0.0 (0-0); Nucleated Red Blood Cells % 0.1 % (0-0); RBC Red Blood Cell Count 4.54 M/uL (4.33-5.43); White Blood Count 8.70 thou/uL (4.3-10.9)
--- NOTE | 2025-04-17 18:38 | RAD REPORT ---
Procedure: Chest Single View HISTORY: Chest pain COMPARISON: 2022 FINDINGS: Moderate to large right pneumothorax The lungs appear clear of acute infiltrate. No significant pleural effusion noted. The heart is normal size. IMPRESSION: Moderate to large right pneumothorax. Dr. Hanna of the emergency room notified 6:34 PM April 17, 2025
[2025-04-17 18:41] LABS: PT Prothrombin Time 11.6 SECONDS (10-13.0); Protime INR 1.03
[2025-04-17 18:54] LABS: ALT/SGPT 33.0 U/L (16-61); AST/SGOT 24.0 U/L (15-37); Albumin 3.8 g/dL (3.4-5.0); Albumin/Globulin Ratio 1.2 (1.1-1.8); Alkaline Phosphatase 87.0 U/L (45-117); Anion Gap 13.9 mEq/L (5.0-15.0); BUN Blood Urea Nitrogen 29.0 mg/dL (7-18); Bilirubin Indirect, Calculated 0.4 mg/dL (0.2-0.8); Globulin 3.2 g/dL (2.3-3.5); Glucose Level 157.0 mg/dL (74-106); Lipase 53.0 U/L (13-75); Magnesium 1.9 mg/dL (1.6-2.4); NT PRO-BNP 63.0 pg/mL (<125); Potassium 3.9 mEq/L (3.5-5.1); Troponin High Sensitivity 7.3 pg/mL (<58.9)
[2025-04-17] MEDS ORDERED: ONDANSETRON 4 MG/2 ML VIAL ONE (18:59)
[2025-04-17] MEDS ORDERED: MORPHINE 4 MG/ML SYR ONE ×2 (19:00→19:07)
--- NOTE | 2025-04-17 19:15 | RAD REPORT ---
Procedure: Chest Single View HISTORY: Chest tube placement FINDINGS: Right chest tube has been placed. The right lung has reexpanded with minimal residual pneumothorax.
[2025-04-17] MEDS ORDERED: NA CHLORIDE 0.9% 500 ML ONE (19:16)
[2025-04-17] MEDS ORDERED: FAMOTIDINE 20 MG/2 ML VIAL IV ONE (19:16)
--- NOTE | 2025-04-17 19:18 | EDPHYS ---
Physician Documentation [facility] Name: Aaron Valenzuela Age: 74 yrs Sex: Male : 1950 Arrival Date: 04/17/2025 Time: 17:42 Bed 4 Private MD: ED Physician Nabil Hanna HPI: 04/17 19:13 This 74 yrs old Male presents to ER via EMS with complaints of Shortness Of babar Breath, Chest Pain. 19:13 The patient has shortness of breath at rest. Onset: The symptoms/episode began/occurred babar just prior to arrival. Duration: The symptoms are continuous, and are steadily getting worse. The patient's shortness of breath is aggravated by coughing, light activity, is alleviated by rest, sitting up, application of supplemental oxygen. Associated signs and symptoms: Pertinent positives: chest pain, non-productive cough. Severity of symptoms: At their worst the symptoms were moderate in the emergency department the symptoms are unchanged. The patient has experienced a previous episode, last year. Historical: - Allergies: 18:00 No Known Allergies; me1 - PMHx: 18:00 Diabetes - IDDM; High Cholesterol; Hypertension; me1 - PSHx: 18:01 fempop bypass bilaterally (Unknown); me1 - Immunization history:: Adult Immunizations up to date. - Infectious Disease History:: Denies. - Social history:: Smoking status: Patient reports the use of cigarette tobacco products, smokes two packs cigarettes per day. ROS: 19:14 Constitutional: Negative for fever, chills, and weight loss, Eyes: Negative for injury, babar pain, redness, and discharge, ENT: Negative for injury, pain, and discharge, Neck: Negative for injury, pain, and swelling, Cardiovascular: Negative for chest pain, palpitations, and edema, Abdomen/GI: Negative for abdominal pain, nausea, vomiting, diarrhea, and constipation, Back: Negative for injury and pain, : Negative for injury, bleeding, discharge, and swelling, MS/Extremity: Negative for injury and deformity, Skin: Negative for injury, rash, and discoloration, Neuro: Negative for headache, weakness, numbness, tingling, and seizure, Psych: Negative for depression, anxiety, suicide ideation, homicidal ideation, and hallucinations, Allergy/Immunology: Negative for hives, rash, and allergies, Endocrine: Negative for neck swelling, polydipsia, polyuria, polyphagia, and marked weight changes, Hematologic/Lymphatic: Negative for swollen nodes, abnormal bleeding, and unusual bruising, 19:14 Respiratory: Positive for cough, shortness of breath, at rest. right side decreased bs, 19:14 MS/extremity: Negative for acute changes, Exam: 19:14 Constitutional: This is a well developed, well nourished patient who is awake, alert, babar and in no acute distress. Head/Face: Normocephalic, atraumatic. Eyes: Pupils equal round and reactive to light, extra-ocular motions intact. Lids and lashes normal. Conjunctiva and sclera are non-icteric and not injected. Cornea within normal limits. Periorbital areas with no swelling, redness, or edema. ENT: Nares patent. No nasal discharge, no septal abnormalities noted. Tympanic membranes are normal and external auditory canals are clear. Oropharynx with no redness, swelling, or masses, exudates, or evidence of obstruction, uvula midline. Mucous membranes moist. Neck: Trachea midline, no thyromegaly or masses palpated, and no cervical lymphadenopathy. Supple, full range of motion without nuchal rigidity, or vertebral point tenderness. No Meningismus. Chest/axilla: Normal chest wall appearance and motion. Nontender with no deformity. No lesions are appreciated. Cardiovascular: Regular rate and rhythm with a normal S1 and S2. No gallops, murmurs, or rubs. Normal PMI, no JVD. No pulse deficits. Abdomen/GI: Soft, non-tender, with normal bowel sounds. No distension or tympany. No guarding or rebound. No evidence of tenderness throughout. Back: No spinal tenderness. No costovertebral tenderness. Full range of motion. Male : Normal genitalia with no discharge or lesions. Skin: Warm, dry with normal turgor. Normal color with no rashes, no lesions, and no evidence of cellulitis. MS/ Extremity: Pulses equal, no cyanosis. Neurovascular intact. Full, normal range of motion., bilateral aka Neuro: Awake and alert, GCS 15, oriented to person, place, time, and situation. Cranial nerves II-XII grossly intact. Motor strength 5/5 in all extremities. Sensory grossly intact. Cerebellar exam normal. Normal gait. Psych: Awake, alert, with orientation to person, place and time. Behavior, mood, and affect are within normal limits. 19:14 ECG was reviewed by the Attending Physician. 19:14 Respiratory: mild respiratory distress is noted, Respirations: no acute changes, is not noted, Breath sounds: decreased breath sounds, that are moderate, that are severe, are heard in the right upper lobe, right middle lobe, right lower lobe, right posterior upper lobe, right posterior middle lobe and right posterior lower lobe, 19:14 Musculoskeletal/extremity: DVT Exam: No signs of deep vein thrombosis. no pain, no swelling, no tenderness, negative Homans' sign noted on exam, no appreciated bluish discoloration, no erythema, no increased warmth, Vital Signs: 17:57 BP 152 / 66; Pulse 90; Resp 20; Temp 98; Pulse Ox 97% on Non-rebreather mask; Weight me1 86.18 kg; Height 6 ft. 0 in. ; Pain 0/10; 18:30 BP 131 / 63; Pulse 85; Resp 25; Pulse Ox 100% on BiPAP; me1 19:00 BP 156 / 79; Pulse 70; Resp 18; Pulse Ox 100% ; me1 19:41 BP 153 / 76; Pulse 69; Resp 25; Pulse Ox 100% on 10 lpm Non-rebreather mask; kd3 20:00 Pulse Ox 95% on 4 lpm NC; kd3 21:12 BP 146 / 82; Pulse 72; Resp 22; Pulse Ox 98% on 2 lpm NC; kd3 21:33 BP 127 / 63; Pulse 67; Resp 19; Pulse Ox 97% on 4 lpm NC; kd3 17:57 Body Mass Index 25.77 (86.18 kg, 182.88 cm) me1 17:57 Pain Scale: Adult me1 Procedures: 19:20 Chest tube insertion: the site was prepped using Betadine, in sterile fashion, Tube babar size: a 20 ukrainian chest tube was inserted, introduced in right lateral to pleur-e-vac, dressed with vaseline gauze, silk tape, 4x4s, the patient tolerated the procedure well. MDM: 18:15 Medical Screening Exam initiated babar 19:18 Differential diagnosis: Chronic Obstructive Pulmonary Disease anxiety, chest wall pain, babar esophagitis, gastroesophageal reflux disease (GERD), hiatal hernia, peptic ulcer disease, pneumothorax, pulmonary embolus, stable angina, pneumonia, Pneumothorax Pulmonary Embolism reactive airway disease. Antibiotic administration: Levaquin given. HEART Score: History: Slightly Suspicious (0), ECG: Normal (0), Age: > or = 65 years (2), Risk Factors: 1 or 2 risk factors (1), [Hypertension] [DM] Troponin: < or = 1 x Normal Limit (0). The patient was not given aspirin in the Emergency Department. Immunization status: Pneumococcal vaccine: within last 5 years. Influenza vaccine: Data reviewed: vital signs, nurses notes, lab test result(s), EKG, radiologic studies, plain films. Consideration of Admission/Observation Escalation of care including admission/observation considered. Independent interpretation of the following test(s) in the Emergency Department EKG: See my EKG interpretation above. 04/17 18:16 Order name: Basic Metabolic Panel; Complete Time: : [facility] 04/17 18:16 Order name: CBC with Diff; Complete Time: 18:33 [facility] 04/17 18:16 Order name: LFT's; Complete Time: : [facility] 04/17 18:16 Order name: Magnesium; Complete Time: : [facility] 04/17 18:16 Order name: NT PRO-BNP; Complete Time: : [facility] 04/17 18:16 Order name: PT-INR; Complete Time: : [facility] 04/17 18:16 Order name: Troponin HS; Complete Time: : [facility] 04/17 18:16 Order name: Blood Culture Adult (2) [facility] 04/17 18:16 Order name: Lactate w/ 2H reflex if indic.; Complete Time: : [facility] 04/17 18:16 Order name: Lipase; Complete Time: : [facility] 04/17 18:16 Order name: UA Rfx Tor Cult if indicated 04/17 18:12 Order name: CXR XRAY; Complete Time: 19:25 [facility] 04/17 18:16 Order name: XRAY Chest (1 view); Complete Time: : [facility] 04/17 18:16 Order name: Cardiac monitoring; Complete Time: 18: [facility] 04/17 18:16 Order name: EKG - Nurse/Tech; Complete Time: 18:24 [facility] 04/17 18:16 Order name: IV Saline Lock; Complete Time: 18: [facility] 04/17 18:16 Order name: Labs collected and sent; Complete Time: 18:24 [facility] 04/17 18:16 Order name: O2 Per Protocol; Complete Time: 18:24 [facility] 04/17 18:16 Order name: O2 Sat Monitoring; Complete Time: 18:25 [facility] 04/17 18:18 Order name: Misc. Order: cook set to bedside; Complete Time: 18:23 babar EC:14 Rate is 84 beats/min. Rhythm is regular. QRS [place] is Normal. MA interval is normal. QRS babar interval is normal. QT interval is normal. No Q waves. T waves are Normal. No ST changes noted. Clinical impression: Normal ECG and No evidence of ischemia. Interpreted by me. Reviewed by me. Administered Medications: 19:03 Drug: morphine IVP or IV 4 mg IVP once over 4 mins Route: IVP; Infused Over: 4 mins; me1 Site: right forearm; 21:55 Follow up: Response: No adverse reaction; Pain is decreased kd3 19:04 Drug: Ondansetron IVP 4 mg IVP once; over 2 minutes Route: IVP; Site: left forearm; me1 21:54 Follow up: Response: No adverse reaction kd3 19:10 Drug: morphine IVP or IV 4 mg IVP once over 4 mins Route: IVP; Infused Over: 4 mins; kd3 Site: right forearm; 21:55 Follow up: Response: No adverse reaction; Pain is decreased kd3 19:19 Drug: NS 0.9% IV 500 ml 500 ml IV at 1 bolus once; to be given as a bolus over 30 kd3 minutes Volume: 500 ml; Route: IV; Rate: 1 bolus; Site: right forearm; 19:50 Follow up: IV Status: Completed infusion kd3 21:54 Follow up: IV Status: Completed infusion kd3 19:19 Drug: Famotidine IVP 20 mg IVP once; dilute with 10 mL 0.9% NaCl; give over 2 minutes kd3 Route: IVP; Site: right forearm; 21:54 Follow up: Response: No adverse reaction kd3 19:40 Drug: HYDROmorphone IVP 0.5 mg IVP once Route: IVP; Site: right forearm; kd3 21:55 Follow up: Response: No adverse reaction; Pain is decreased kd3 19:50 Drug: levofloxacin IVPB 500 mg 100 ml IVPB once over 60 mins Volume: 100 ml; Route: kd3 IVPB; Infused Over: 60 mins; Site: right forearm; 21:54 Follow up: IV Status: Completed infusion kd3 21:54 Drug: HYDROmorphone IVP 0.5 mg IVP once Route: IVP; Site: right forearm; kd3 21:55 Follow up: Response: No adverse reaction; Pain is decreased kd3 Disposition: 19:21 Critical Care:. babar Disposition Summary: 04/17/25 19:18 Transfer Ordered Notes: Transfer Location: [facility] babar Reason: Higher level of care babar Condition: Stable babar Problem: new babar Symptoms: have improved babar Accepting Physician: to [facility] , sicu(04/17/25 21:56) kd3 Diagnosis - Primary spontaneous pneumothorax - recurrent babar - Dyspnea babar Forms: - Medication Reconciliation Form babar - SBAR form babar Critical care time excluding procedures: 19:21 Critical care time: Bedside Care: 45 minutes, Consultation: 20 minutes, Family babar Intervention: 15 minutes. Total time: 80 minutes Signatures: Dispatcher [employer] Nabil Feliciano MD MD cha Doucette, Kyli RN RN kd3 Rochelle Lundberg RN RN me1 Corrections: (The following items were deleted from the chart) 18:01 18:00 PSHx: fempop bypass bilaterally (Hypertension); me1 me1 18:13 18:13 Chest Single View+RAD.RAD.BRZ ordered. EDMS EDMS 18:17 18:17 BASIC METABOLIC PANEL+C.LAB.BRZ ordered. EDMS EDMS 18:17 18:17 CBC+H.LAB.BRZ ordered. EDMS EDMS 18:17 18:17 HEPATIC FUNCTION+C.LAB.BRZ ordered. EDMS EDMS 18:17 18:17 MAGNESIUM+C.LAB.BRZ ordered. EDMS EDMS 18:17 18:17 PROBNP+C.LAB.BRZ ordered. EDMS EDMS 18:17 18:17 PROTIME (+INR)+COAG.LAB.BRZ ordered. EDMS EDMS 18:17 18:17 Troponin High Sensitivity+C.LAB.BRZ ordered. EDMS EDMS 18:17 18:17 BLOOD CULTURE*+BA.LAB.BRZ ordered. EDMS EDMS 18:17 18:17 LACTATE+C.LAB.BRZ ordered. EDMS EDMS 18:17 18:17 LIPASE+C.LAB.BRZ ordered. EDMS EDMS 18:17 18:17 UA Rfx Tor Cult if indicated+U.LAB.BRZ ordered. EDMS EDMS 18:17 18:17 Chest Single View+RAD.RAD.BRZ ordered. EDMS EDMS 19:11 19:00 Chest Single View+RAD.RAD.BRZ ordered. EDMS EDMS 21:56 19:18 to [facility] , sicu [facility] kd3
--- NOTE | 2025-04-17 19:18 | ER ---
[facility] Name: Aaron Valenzuela Age: 74 yrs Sex: Male : 1950 Arrival Date: 04/17/2025 Time: 17:42 Bed 4 Private MD: Diagnosis: Primary spontaneous pneumothorax-recurrent;Dyspnea Presentation: 04/17 17:57 Chief complaint: EMS states: toned out for SOB and CP after a coughing spell. Pain was me1 midsternal but has resolved. Rhonchi bilaterally. o2 sat 96% on 12 L NRB. 18 g RFA. Coronavirus screen: Vaccine status: Patient reports receiving the 2nd dose of the covid vaccine. Ebola Screen: No symptoms or risks identified at this time. Initial Sepsis Screen: Does the patient meet any 2 criteria? HR > 90 bpm. Does the patient have a suspected source of infection? No. Patient's initial sepsis screen is negative. Risk Assessment: Do you want to hurt yourself or someone else? Patient reports no desire to harm self or others. Note RT at bedside with bipap. Onset of symptoms was April 17, 2025 at 17:30. 17:57 Method Of Arrival: EMS: [facility] me1 17:57 Acuity: FRANCESCA 3 me1 18:23 Acuity: FRANCESCA 2 iw Triage Assessment: 18:01 General: Appears uncomfortable, well groomed, well developed, well nourished, Behavior me1 is cooperative, appropriate for age, anxious. Pain: Denies pain. EENT: No signs and/or symptoms were reported regarding the EENT system. Neuro: Level of Consciousness is awake, alert, obeys commands, Oriented to person, place, time, situation, Appropriate for age. 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 Respiratory: Reports shortness of breath at rest on exertion cough that is persistent Airway is patent Respiratory effort is even, labored, Respiratory pattern is regular, tachypnea Onset: The symptoms/episode began/occurred just prior to arrival, the patient has moderate shortness of breath. GI: No signs and/or symptoms were reported involving the gastrointestinal system. : No signs and/or symptoms were reported regarding the genitourinary system. Derm: Skin is intact, is healthy with good turgor, Skin is normal. Musculoskeletal: Circulation, motion, and sensation intact. Range of motion: intact in all extremities. Historical: - Allergies: 18:00 No Known Allergies; me1 - PMHx: 18:00 Diabetes - IDDM; High Cholesterol; Hypertension; me1 - PSHx: 18:01 fempop bypass bilaterally (Unknown); me1 - Immunization history:: Adult Immunizations up to date. - Infectious Disease History:: Denies. - Social history:: Smoking status: Patient reports the use of cigarette tobacco products, smokes two packs cigarettes per day. Screenin:02 [facility] ED Fall Risk Assessment (Adult) History of falling in the last 3 months, me1 including since admission No falls in past 3 months (0 pts) Confusion or Disorientation No (0 pts) Intoxicated or Sedated No (0 pts) Impaired Gait No (0 pts) Mobility Assist Device Used No (0 pt) Altered Elimination No (0 pt) Score/Fall Risk Level 0 - 2 = Low Risk Maintained a safe environment, Provided non-skid footwear, Hourly rounding (assess needs \T\ fall precautionary measures) done. Abuse screen: Denies threats or abuse. Nutritional screening: No deficits noted. Tuberculosis screening: No symptoms or risk factors identified. Assessment: 18:02 General: See triage assessment. me1 19:33 Pain: Complains of pain in right middle lobe and right upper lobe Pain currently is 9 kd3 out of 10 on a pain scale. Cardiovascular: Rhythm is sinus rhythm. Respiratory: Airway is patent Trachea midline Respiratory effort is even, unlabored, Respiratory pattern is regular, symmetrical, Breath sounds are clear in right upper lobe and left upper lobe. 19:50 Neuro: Level of Consciousness is awake, alert, obeys commands, Oriented to person, kd3 place, time, situation. 20:03 General: Pt reports 7/10 pain with deep inhalation but reports over all feeling better .kd3 21:55 General: Appears in no apparent distress. Behavior is calm, cooperative. Pain: kd3 Complains of pain in chest Pain currently is 8 out of 10 on a pain scale. Neuro: Level of Consciousness is awake, alert, obeys commands, Oriented to person, place, time, situation. Cardiovascular: Rhythm is sinus rhythm. Respiratory: Airway is patent Trachea midline Respiratory effort is even, unlabored, Respiratory pattern is regular, symmetrical. Vital Signs: 17:57 BP 152 / 66; Pulse 90; Resp 20; Temp 98; Pulse Ox 97% on Non-rebreather mask; Weight me1 86.18 kg; Height 6 ft. 0 in. ; Pain 0/10; 18:30 BP 131 / 63; Pulse 85; Resp 25; Pulse Ox 100% on BiPAP; me1 19:00 BP 156 / 79; Pulse 70; Resp 18; Pulse Ox 100% ; me1 19:41 BP 153 / 76; Pulse 69; Resp 25; Pulse Ox 100% on 10 lpm Non-rebreather mask; kd3 20:00 Pulse Ox 95% on 4 lpm NC; kd3 21:12 BP 146 / 82; Pulse 72; Resp 22; Pulse Ox 98% on 2 lpm NC; kd3 21:33 BP 127 / 63; Pulse 67; Resp 19; Pulse Ox 97% on 4 lpm NC; kd3 17:57 Body Mass Index 25.77 (86.18 kg, 182.88 cm) nj1 17:57 Pain Scale: Adult [facility] ED Course: 17:57 Patient arrived in ED. me1 18:00 Triage completed. me1 18:01 Arm band placed on Patient placed in an exam room. me1 18:02 Patient has correct armband on for positive identification. Bed in low position. Call [facility] light in reach. Side rails up X2. Provided Education on: POC. Verbalized understanding.. Client placed on continuous cardiac and pulse oximetry monitoring. NIBP monitoring applied. color television console monitor on. Pulse ox on. NIBP on. 18:02 No provider procedures requiring assistance completed. Maintain EMS IV. Dressing nj1 intact. Good blood return noted. Site clean \T\ dry. Gauge \T\ site: 18g RFA. Flushed with 10 mL NS. 18:12 Rochelle Lundberg RN is Primary Nurse. [facility] 18:15 Nabil Hanna MD is Attending Physician. [facility] 18:27 CXR XRAY In Process Unspecified. EDMS 19:04 Assist provider with chest tube insertion with 20 Fr. in right lateral Tray was set up. me1 Attached to Chest tube inserted by Nabil Hanna MD Placement verified by CXR, fluctuation of fluid, Dressed with Vaseline gauze, foam tape, Patient tolerated well. 19:11 XRAY Chest (1 view) In Process Unspecified. EDMS 19:29 First set of blood cultures drawn by me, Second set of blood cultures drawn by me. kd3 Inserted saline lock: 20 gauge in left forearm, using aseptic technique. Blood collected. Flushed with 10 mL NS. 19:32 Blood Culture Adult (2) Sent. kd3 19:51 Chest tube maintenance: Connected to pleur-e-vac. Site clean \T\ dry. kd3 19:54 Primary Nurse role handed off by Rochelle Lundberg, MELI kd3 19:54 Jessie Wilson, MELI is Primary Nurse. kd3 21:56 Patient transferred, IV remains in place. kd3 22:50 pt was accepted by Chuck Avina \T\ [facility]. Pt will go to [address] [place] [address] A [facility] 3. Accepting kmf admin Wendy Quinn \T\ 2041. Number for nurse to nurse report [phone]. Administered Medications: 19:03 Drug: morphine IVP or IV 4 mg IVP once over 4 mins Route: IVP; Infused Over: 4 mins; me1 Site: right forearm; 21:55 Follow up: Response: No adverse reaction; Pain is decreased kd3 19:04 Drug: Ondansetron IVP 4 mg IVP once; over 2 minutes Route: IVP; Site: left forearm; nj1 21:54 Follow up: Response: No adverse reaction kd3 19:10 Drug: morphine IVP or IV 4 mg IVP once over 4 mins Route: IVP; Infused Over: 4 mins; kd3 Site: right forearm; 21:55 Follow up: Response: No adverse reaction; Pain is decreased kd3 19:19 Drug: NS 0.9% IV 500 ml 500 ml IV at 1 bolus once; to be given as a bolus over 30 kd3 minutes Volume: 500 ml; Route: IV; Rate: 1 bolus; Site: right forearm; 19:50 Follow up: IV Status: Completed infusion kd3 21:54 Follow up: IV Status: Completed infusion kd3 19:19 Drug: Famotidine IVP 20 mg IVP once; dilute with 10 mL 0.9% NaCl; give over 2 minutes kd3 Route: IVP; Site: right forearm; 21:54 Follow up: Response: No adverse reaction kd3 19:40 Drug: HYDROmorphone IVP 0.5 mg IVP once Route: IVP; Site: right forearm; kd3 21:55 Follow up: Response: No adverse reaction; Pain is decreased kd3 19:50 Drug: levofloxacin IVPB 500 mg 100 ml IVPB once over 60 mins Volume: 100 ml; Route: kd3 IVPB; Infused Over: 60 mins; Site: right forearm; 21:54 Follow up: IV Status: Completed infusion kd3 21:54 Drug: HYDROmorphone IVP 0.5 mg IVP once Route: IVP; Site: right forearm; kd3 21:55 Follow up: Response: No adverse reaction; Pain is decreased kd3 Medication: 18:02 VIS not applicable for this client. me1 Outcome: 19:18 ER care complete, transfer ordered by MD. eckert 21:56 Transferred by ground EMS to [facility], [facility], kd3 21:56 Condition: stable 21:56 Discharge instructions given to patient, family, Instructed on the need for transfer, 21:56 Patient left the ED. kd3 Signatures: Dispatcher [employer] Nabil Feliciano MD MD cha Williams, Irene, RN MELI Jessie Wilson RN RN kd3 Rochelle Lundberg RN RN nj1 Merari Oden [facility] Corrections: (The following items were deleted from the chart) 18:01 18:00 PSHx: fempop bypass bilaterally (Hypertension); me1 me1 19:06 19:04 Assist provider with chest tube insertion with in right lateral Tray was set up. me1 Attached to Chest tube inserted by Nabil Hanna MD Placement verified by CXR, fluctuation of fluid, Dressed with Vaseline gauze, foam tape, Patient tolerated well. me1
[2025-04-17] MEDS ORDERED: HYDROMORPHONE HCL 0.5 MG/0.5 ML INJ ONE ×2 (19:36→21:49)
[2025-04-17] MEDS ORDERED: Levofloxacin500mg IV 500 MG/100 ML BAG IV ONE (19:37)
[2025-04-17 22:02] LABS: Urine Microscopic Reflex YN NO UMIC
== END 2025-04-17 21:56 | disposition short-term general hospital (02) ==
LOC: ER 17:42
DX: J93.11 Primary spontaneous pneumothorax (principal); F17.210 Nicotine dependence, cigarettes, uncomplicated
CPT/HCPCS: 93005; 87040 ×2; 85025; 80048; 36415; 83735; 85610; 80076; 83605; 81003; 84484; 83690; 83880; 71045 ×2; 99285; 94660; 32554; J2003; J1171 ×2; J2405; J7040